=== PATIENT | female | born 1930 | race African-American/Black ===

== ENCOUNTER 2017-01-26 09:56 | Inpatient (IN) ==
--- NOTE | 2017-01-26 10:41 | Emergency Department Note ---
Juanita Mcnair Hilary, am scribing for, and in the presence of, Neto Guzman MD 10:29. Megan Mcnair Charles R, MD, personally performed the services described in this documentation, ascribed by Josiane Grant in my presence, and it is both accurate and complete . Arrival - Arrival Chief Complaint: Weakness Stated Complaint: weakness ED Nursing Triage Note: EMS states that she has had unexplained generalized weakness and lethargic. Patient alert and oriented. Pt BS was 200 this AM and daughter gave her her insulin. EMS reports that she is unable to walk. Mode of Arrival: Stretcher Limitations: No Limitations Source: Patient, RN Notes Reviewed - History of Present Illness HPI Narrative: Pt is an 87 y/o female brought to the ED via EMS with c/o generalized weakness which onset yesterday at 1900. Pt is a poor historian so family states that she started to shake, said she was cold and didn't feel well. She confirms weakness , SOB, abdominal pain, decreased appetite, shaking and feeling bad but denies fever or vomiting. Pt has a PMHx of CAD, HTN, [place], IDDM, Depression and Renal Problems. No other complaints or problems stated in the ED. Onset (ago): day(s) Consistency: constant Severity: mild Severity scale (1-10): 1 Allergies/Adverse Reactions: Allergies Allergy/AdvReac Type Severity Reaction Status Date / Time acetaminophen [From Tylenol] Allergy Intermediate Swelling Verified 06/02/15 06: 30 of Lip/Tongue/Throat Home Medications: Home Medications Medication Instructions Recorded Confirmed Type Albuterol Sulfate [Proair HFA] 108 mcg RESP TX Q4HR PRN 05/15/15 06/02/15 History Allopurinol 100 mg PO BID 05/15/15 06/02/15 History Furosemide Tab [Lasix Tab] 20 mg PO DAILY 05/15/15 06/02/15 History Omeprazole [Prilosec] 20 mg PO DAILY 05/15/15 06/02/15 History Sertraline HCl 25 mg PO DAILY 05/15/15 06/02/15 History Aspirin EC Tab 81 mg PO DAILY tablet 05/18/15 06/02/15 Rx Atorvastatin [Lipitor] 40 mg PO DAILY tablet 05/18/15 06/02/15 Rx Carvedilol [Coreg] 6.25 mg PO BID tablet 05/18/15 06/02/15 Rx Gabapentin Cap/Tab [Neurontin 300 mg PO BID capsule 05/18/15 06/02/15 Rx Cap/Tab] Insulin NPH/Regular 70/30 [HumuLIN 20 unit SUBCUT AC SUPPER injection 05/18/15 06/02/15 Rx 70/30] Nitroglycerin Sl Tab [Nitrostat] 0.4 mg SL Q5M PRN #0 tablet 05/18/15 06/02/15 Rx Prasugrel [Effient] 10 mg PO DAILY tablet 05/18/15 06/02/15 Rx Insulin NPH/Regular 70/30 [HumuLIN 40 unit SUBCUT AC BREAKFAST 06/02/15 History ] Review of System - Review of System 12 point system: reviewed and no additional remarkable complaints except as stated - Review of System Constitutional: Present: weakness, other (shaking). Absent: fever Respiratory: Present: respiratory distress (SOB) Gastrointestinal: Present: abdominal pain. Absent: vomiting Neurological: Present: weakness Medical,Surgical,& Family Hx - Medical History Cardio: History of: CAD, Hypertension, [place] ([place] 05/15/15) Psychological: History of: Depression Neurology: No history of: Seizures HEENT: History of: Eye Problem (wears glasses, cataracts) Endocrine: History of: Diabetes Mellitus (IDDM) Rheumatology: History of;: Gout Respiratory: History of: Asthma, Pneumonia, Respiratory Problems (uses inhaler for wheezing) Renal: History of: Renal Problems (chronic renal insufficiency) Genitourinary: History of: Recurring Urinary Tract Infections Gastrointestinal: History of: Hemorrhoids Musculoskeletal: History of: Amputation (rt. great toe 2014), Back/Neck Problems Other: History of: Anaphylaxis (lips and face swell) - Surgical History Cardiac Surgeries: Sugical HX of: Cardiac Catheterization (05/15/15 and 06/02/15 with stents) Thoracic Surgeries: Patient denies;: Organ Transplant, Lobectomy Neurologic Surgeries: Patient denies: Neurologic Surgery HEENT Surgeries: Surgical HX of: Eye Surgery (cataract surgery) Abdominal Surgeries: Surgical HX of: Appendectomy, Colonoscopy Reproductive Surgeries: Surgical HX of;: Hysterectomy Patient denies;: Genitourinary Surgery - Family History Family History: Reports;: Family Diabetes (3 brothers and 1 sister), Family Heart Disease (brother), Family Hypertension (both parents) Denies;: Family Anesthesia Reaction, Family Cancer, Family Psychiatric Problems, Family Stroke - Social History Smoking Status: Never smoker Frequency of Alcohol Use: None Exam Vital Signs: Vital Signs Temperature 98.7 F 01/26/17 09:58 Pulse Rate 71 01/26/17 09:58 Respiratory Rate 19 01/26/17 09:58 Blood Pressure 137/81 01/26/17 09:58 O2 Sat by Pulse Oximetry 99 01/26/17 09:58 - General General appearance: alert, in no apparent distress, other (shakes right arm) - Head Head exam: Present: atraumatic, normocephalic - Eye Eye exam: Present: normal appearance, PERRL, EOMI - ENT ENT exam: Present: mucous membranes moist, TM's normal bilaterally. Absent: mucous membranes dry - Neck Neck exam: Present: full ROM, trachea midline. Absent: tenderness - Chest Chest inspection: Present: symmetric chest wall rise. Absent: tenderness - Respiratory Respiratory exam: Present: normal lung sounds bilaterally. Absent: respiratory distress - Cardiovascular Cardiovascular exam: Present: regular rate, normal rhythm, normal heart sounds. Absent: murmur, rubs, gallop - Abdominal Exam Abdominal exam: Present: soft (bloated), tenderness (RUQ), normal bowel sounds. Absent: distention - Extremities Exam Extremities exam: Present: full ROM. Absent: tenderness - Back Exam Back exam: Present: full ROM. Absent: tenderness - Neurological Exam Neurological exam: Present: alert, oriented X3, CN II-XII intact. Absent: motor sensory deficit - Psychiatric Psychiatric exam: Present: normal affect, normal mood - Skin Skin exam: Present: warm, dry, intact, normal color, rash Course - Consultations Consultation #1: Hospitalist will admit patient Time: 10:39 Results - Labs Lab Results: I have reviewed the patients labs Labs: All results reviewed from previous facility Disposition Clinical Impression: Generalized weakness, Leukocytosis, Nausea & vomiting, Rigors, Acute dyspnea, Debility, unspecified, Advanced age, Abdominal pain, Renal insufficiency, Congestive heart failure, Lower extremity edema, Elevated LFTs Case discussed with: patient, patient's family Disposition: Still a Patient Condition: Stable Time of Disposition: 10:41
--- NOTE | 2017-01-26 11:26 | Ultrasound Report ---
Exam: US gallbladder Date:01/26/2017 10:32 AM Comparison: None Indication: Elevated liver function test Findings: IMPORTANT MEASUREMENTS Liver Length: Normal size shape and configuration 11.7 cm Gallbladder Wall Thickness: Small stones present. Positive sonographic Bravo sign present. Multiple small stones present. Gallbladder wall 3 mm CBD: No obvious stones 3 mm Pancreas: Normal size shape and configuration Right kidney: No hydronephrosis perinephric fluid collections or focal massLength: 9.4 cm Width: 5 cm AP: 4.1 cm 2.0 x 1.8 x 1.9 cm cyst lower pole right kidney Impression: 1. Cholelithiasis 2. Cyst measuring 2 x 1.8 x 1.9 cm in the lower pole the right kidney The Ultrasound images were captured and stored. PROCEDURE INTERPRETED AT [facility] DEPARTMENT OF RADIOLOGY Final Report Signed by: Dr. Jose C Vieira
--- NOTE | 2017-01-26 11:40 | Hospitalist History & Physical ---
Assessment and Plan (1) Abdominal pain Status: Acute Assessment and plan: The patient experienced right lower quadrant abdominal pain upon gentle palpation. Gallbladder ultrasound revealed moderate amount of gallstones. We will keep the patient n.p.o., start empiric antibiotic coverage, pain management , protein pump inhibitors, and consult surgery to evaluate. Current Visit: Yes (2) Congestive heart failure Status: Acute Assessment and plan: ProBNP was reported at 1533. The patient reported shortness of breath and dyspnea upon minimal exertion. The patient currently takes 240 mg of furosemide daily 80 mg at the hour of sleep and 160 mg every morning. We will obtain echocardiogram to evaluate heart function. In addition, the patient underwent cardiac catheterization with stent placement 5. The patient is currently taking Effient for coagulation purposes. Due to the severity of the patient's cardiovascular disease, we will consult cardiology to evaluate and assist during the clinical encounter. We will obtain chest x-ray, CMP, and BNP in a.m. Current Visit: Yes (3) Chronic renal insufficiency Status: Chronic Assessment and plan: Upon review of the external facility record, the patient's BUN and creatinine was noted at 25/2.20. Upon further investigation, during the last clinical encounter in which the patient was hospitalized here at [facility] on May 18, 2015, the patient's BUN and creatinine was noted at 20/1.73. This is a moderate increase since the previous clinical encounter. We will monitor the patient's renal function closely. We will recheck labs in a.m. Current Visit: No (4) Type 2 diabetes mellitus Status: Chronic Assessment and plan: We will obtain hemoglobin A1c and start Accu-Cheks with sliding scale coverage. Current Visit: No History of Present Illness History of present illness: This is a very pleasant 87-year-old female that presented to the ED at [facility] this morning as a transfer from the [facility] in [facility] for the further evaluation of weakness. The patient has a very complex medical history significant for coronary artery disease, hypertension, myocardial infarction, depression, gouty arthritis , chronic urinary tract infections, chronic renal insufficiency, hemorrhoids, asthma, pneumonia, and chronic neck and back pain. The patient has a surgical history significant for cardiac catheterization with stent placement 5, appendectomy, hysterectomy, and colonoscopy. The patient reported the onset of symptoms on last night. The family was present at bedside reported that the patient is a poor historian at times and has agreed to serve as historian. The family reported that they noticed that the patient was "shaking, cold, and did not feel well". In addition, they reported a gradual onset of weakness, shortness of breath, and decreased appetite. They reported that the patient started to experience abdominal pain with vomiting 1 on last night. They reported that the patient's symptoms became more severe as the night progressed prompting them to present to the ED at [facility] for further evaluation. The patient was assessed at the time of ED presentation at [facility]. Upon review of the patient's medical record, labs were obtained prior to transfer which were significant for white blood cell count 17.2, hemoglobin 10.2, hematocrit 31.8, sodium 136, creatinine 2.20, BUN 25, glucose 231, alkaline phosphatase 241, ALT 145, AST 192, creatinine kinase 450, CK-MB 7.0, PT 15.1, INR 1.2, amylase 30, lipase 2, proBNP 1533, and lactic acid 1.6. Urinalysis was essentially unremarkable. CT head without IV contrast significant for chronic changes with no definite evidence of acute intracranial abnormality and the presence of mild chronic sinus disease was noted. Abdominal x-ray was significant for cardiomegaly, osteoarthritis however, no acute abnormality was noted. The patient was assessed at the time of ED presentation. Ultrasound of the gallbladder was performed which was significant for the presence of multiple gallstones. After brief discussion with both Dr. Guzman and Dr. Hardin, the patient will be admitted to the hospitalist service for continuation of care. Both surgical and cardiology will be requested to evaluate and assist during the clinical encounter. Home medications have been reviewed and reconciled. CODE STATUS discussed; patient is FULL CODE Home Medications Medication Instructions Recorded Confirmed Type Albuterol Sulfate [Proair HFA] 108 mcg RESP TX Q4HR PRN 05/15/15 01/26/17 History Allopurinol 100 mg PO QAM 05/15/15 01/26/17 History Omeprazole [Prilosec] 20 mg PO BEDTIME 05/15/15 01/26/17 History Nitroglycerin Sl Tab [Nitrostat] 0.4 mg SL Q5M PRN #0 tablet 05/18/15 01/26/17 Rx Insulin NPH/Regular 70/30 [HumuLIN 42 unit SUBCUT AC BREAKFAST 06/02/15 History 70/30] Aspirin EC Tab 81 mg PO QAM 01/26/17 01/26/17 History Atorvastatin [Lipitor] 40 mg PO BEDTIME 01/26/17 01/26/17 History Carvedilol [Carvedilol] 12.5 mg PO BID 01/26/17 01/26/17 History Furosemide [Furosemide] 80 mg PO QPM 01/26/17 01/26/17 History Furosemide [Furosemide] 160 mg PO QAM 01/26/17 01/26/17 History Gabapentin [Gabapentin] 400 mg PO TID 01/26/17 01/26/17 History Insulin NPH/Regular 70/30 [HumuLIN 22 unit SUBCUT AC SUPPER 01/26/17 01/26/17 History 70/30] Magnesium Chloride [Slow Mag] 128 mg PO BID 01/26/17 01/26/17 History Medroxyprogesterone Acetate 5 mg PO QAM 01/26/17 01/26/17 History Potassium Chloride 20 meq PO BID 01/26/17 01/26/17 History Prasugrel [Effient] 10 mg PO QAM 01/26/17 01/26/17 History Sertraline [Zoloft] 50 mg PO BEDTIME 01/26/17 01/26/17 History Allergies Allergy/AdvReac Type Severity Reaction Status Date / Time acetaminophen [From Tylenol] Allergy Intermediate Swelling Verified 06/02/15 06: 30 of Lip/Tongue/Throat Medical,Surgical,& Family Hx - Medical History Cardio: History of: CAD, Hypertension, [place] ([place] 05/15/15) Psychological: History of: Depression Neurology: No history of: Seizures HEENT: History of: Eye Problem (wears glasses, cataracts) Endocrine: History of: Diabetes Mellitus (IDDM) Rheumatology: History of;: Gout Respiratory: History of: Asthma, Pneumonia, Respiratory Problems (uses inhaler for wheezing) Renal: History of: Renal Problems (chronic renal insufficiency) Genitourinary: History of: Recurring Urinary Tract Infections Gastrointestinal: History of: Hemorrhoids Musculoskeletal: History of: Amputation (rt. great toe 2014), Back/Neck Problems Other: History of: Anaphylaxis (lips and face swell) - Surgical History Cardiac Surgeries: Sugical HX of: Cardiac Catheterization (05/15/15 and 06/02/15 with stents) Thoracic Surgeries: Patient denies;: Organ Transplant, Lobectomy Neurologic Surgeries: Patient denies: Neurologic Surgery HEENT Surgeries: Surgical HX of: Eye Surgery (cataract surgery) Abdominal Surgeries: Surgical HX of: Appendectomy, Colonoscopy Reproductive Surgeries: Surgical HX of;: Hysterectomy Patient denies;: Genitourinary Surgery - Family History Family History: Reports;: Family Diabetes (3 brothers and 1 sister), Family Heart Disease (brother), Family Hypertension (both parents) Denies;: Family Anesthesia Reaction, Family Cancer, Family Psychiatric Problems, Family Stroke - Social History Smoking Status: Never smoker Have you smoked in the last 12 months: No Frequency of Alcohol Use: None Type of Drug Use: None Marital Status: Lives With:: Children Functional capacity: independent ambulation 12 point system: reviewed and no additional remarkable complaints except as stated Exam - Constitutional Vitals: Period Temp Pulse Resp BP Sys/Escobar Pulse Ox Last 24 Hr 98.7 F-98.7 F 71-71 19-19 137-137/81-81 99 General appearance: normal weight, mild distress - Head Head exam: Present: normal inspection, normocephalic, atraumatic - Eye Eye exam: Present: EOMI. Absent: conjunctival injection Pupils: Present: LYSSA, normal accommodation - ENT ENT exam: Present: normal exam, normal external ear exam, normal oropharynx - Neck Neck exam: Present: normal inspection. Absent: lymphadenopathy, meningismus, tenderness, thyromegaly - Respiratory Respiratory exam: Present: clear to auscultation bilaterally. Absent: rales, rhonchi, stridor, wheezes - Cardiovascular Cardiovascular exam: Present: regular rate and rhythm. Absent: carotid bruit, diastolic murmur, gallop, JVD, rubs, systolic murmur - GI/Abdominal GI/Abdominal exam: Present: normal bowel sounds, tenderness (Upon gentle palpation to the right lower quadrant), soft - Extremities Exam Extremities exam: Present: normal inspection, normal capillary refill, full ROM. Absent: edema - Back Exam Back exam: Present: normal inspection - Neurological Exam Neurological exam: Present: alert, oriented X3, CN II-XII intact - Psychiatric Psychiatric exam: Present: normal affect, normal mood - Skin Skin exam: Present: normal color, warm, dry Results - Labs Lab Results: I have reviewed the past 24 hour labs
[2017-01-26] MEDS ORDERED: ONDANSETRON 4 MG/2 ML VIAL IV PRN (11:52)
[2017-01-26] MEDS ORDERED: MORPHINE 2 MG/1 ML SYRINGE IV PRN (11:52)
[2017-01-26] MEDS ORDERED: GLUCAGON 1 MG VIAL IM PRN (11:55)
[2017-01-26] MEDS ORDERED: DEXTROSE 50% 25 GM/50 ML VIAL IV PRN (11:55)
[2017-01-26] MEDS ORDERED: ALBUTEROL 2.5 MG/3 ML NEB RESP TX PRN (12:10)
[2017-01-26] MEDS ORDERED: SODIUM CHLORIDE 0.9% 1,000 ML IV SCH (14:00)
--- NOTE | 2017-01-26 14:41 | General Surgery Consult Note ---
Assessment and Plan - Time spent with patient Time spent with patient: Greater than 30 minutes History of Present Illness Chief complaint: Gallbladder History of present illness: Ms. Wise is a 87 year old female Who apparently over the last 4 days is had decreased mental status and increased weakness and vague abdominal complaints. She has not specifically complained of right upper quadrant pain but has had a imaging showing a thickened distended gallbladder. She is unable to give much reliable history. Home Medications Medication Instructions Recorded Confirmed Type Allopurinol 100 mg PO QAM 05/15/15 01/26/17 History Omeprazole [Prilosec] 20 mg PO BEDTIME 05/15/15 01/26/17 History Insulin NPH/Regular 70/30 [HumuLIN 42 unit SUBCUT AC BREAKFAST 06/02/15 History 70/30] Aspirin EC Tab 81 mg PO QAM 01/26/17 01/26/17 History Atorvastatin [Lipitor] 40 mg PO BEDTIME 01/26/17 01/26/17 History Carvedilol [Carvedilol] 12.5 mg PO BID 01/26/17 01/26/17 History Furosemide [Furosemide] 80 mg PO QPM 01/26/17 01/26/17 History Furosemide [Furosemide] 160 mg PO QAM 01/26/17 01/26/17 History Gabapentin [Gabapentin] 400 mg PO TID 01/26/17 01/26/17 History Insulin NPH/Regular 70/30 [HumuLIN 22 unit SUBCUT AC SUPPER 01/26/17 01/26/17 History 70/30] Magnesium Chloride [Slow Mag] 128 mg PO BID 01/26/17 01/26/17 History Medroxyprogesterone Acetate 5 mg PO QAM 01/26/17 01/26/17 History Potassium Chloride 20 meq PO BID 01/26/17 01/26/17 History Prasugrel [Effient] 10 mg PO QAM 01/26/17 01/26/17 History Sertraline [Zoloft] 50 mg PO BEDTIME 01/26/17 01/26/17 History Allergies Allergy/AdvReac Type Severity Reaction Status Date / Time acetaminophen [From Tylenol] Allergy Intermediate Swelling Verified 06/02/15 06: 30 of Lip/Tongue/Throat Medical,Surgical,& Family Hx - Medical History Cardio: History of: CAD, Hypertension, [place] ([place] 05/15/15) Psychological: History of: Depression Neurology: No history of: Seizures HEENT: History of: Eye Problem (wears glasses, cataracts) Endocrine: History of: Diabetes Mellitus (IDDM) Rheumatology: History of;: Gout Respiratory: History of: Asthma, Pneumonia, Respiratory Problems (uses inhaler for wheezing) Renal: History of: Renal Problems (chronic renal insufficiency) Genitourinary: History of: Recurring Urinary Tract Infections Gastrointestinal: History of: Hemorrhoids Musculoskeletal: History of: Amputation (rt. great toe 2014), Back/Neck Problems Other: History of: Anaphylaxis (lips and face swell) - Surgical History Cardiac Surgeries: Sugical HX of: Cardiac Catheterization (05/15/15 and 06/02/15 with stents) Thoracic Surgeries: Patient denies;: Organ Transplant, Lobectomy Neurologic Surgeries: Patient denies: Neurologic Surgery HEENT Surgeries: Surgical HX of: Eye Surgery (cataract surgery) Abdominal Surgeries: Surgical HX of: Appendectomy, Colonoscopy Reproductive Surgeries: Surgical HX of;: Hysterectomy Patient denies;: Genitourinary Surgery - Family History Family History: Reports;: Family Diabetes (3 brothers and 1 sister), Family Heart Disease (brother), Family Hypertension (both parents) Denies;: Family Anesthesia Reaction, Family Cancer, Family Psychiatric Problems, Family Stroke - Social History Smoking Status: Never smoker Frequency of Alcohol Use: None Type of Drug Use: None - Constitutional Constitutional: Absent: chills, fever(s), weight loss - EENT Nose, mouth and throat: Absent: dysphagia - Cardiovascular Cardiovascular: Absent: chest pain at rest, chest pain with activity, dyspnea, dyspnea on exertion, syncope - Respiratory Respiratory: Absent: dyspnea, hemoptysis, dyspnea on exertion - Gastrointestinal Gastrointestinal: Present: abdominal pain, nausea. Absent: hematemesis, hematochezia, vomiting, jaundice - Genitourinary Genitourinary: Absent: hematuria - Musculoskeletal Musculoskeletal: Absent: back pain - Neurological Neurological: Absent: focal weakness, syncope - Endocrine Endocrine: Present: polyuria Hematologic/Lymphatic: Absent: easy bleeding, easy bruising Exam - Constitutional Vitals: Period Temp Pulse Resp BP Sys/Escobar Pulse Ox Last 24 Hr 98.7 F-98.7 F 62-71 18-19 113-147/52-81 96-99 General appearance: no acute distress - Head Head exam: Present: normocephalic - Eye Eye exam: Absent: scleral icterus - ENT Mouth exam: Present: normal voice - Neck Neck exam: Present: trachea midline. Absent: tenderness - Respiratory Respiratory exam: Present: clear to auscultation bilaterally. Absent: accessory muscle use - Cardiovascular Cardiovascular exam: Present: RRR - GI/Abdominal GI/Abdominal exam: Present: soft. Absent: distended, mass, Bravo's sign, tenderness, rebound - Neurological Exam Neurological exam: Present: altered. Absent: oriented X3, motor sensory deficit Speech: Present: normal - Skin Skin exam: Present: normal color Quality Measures - VTE Contraindication to Pharmacological VTE Prophylaxis: Already on Theraputic Agent , No Prophylaxis Needed Results - Diagnostic Findings Procedure: Ultrasound: report reviewed by me
[2017-01-26] MEDS: CIPROFLOXACIN INJ 400 MG in PREMIX 1 EACH IV SCH (14:45)
--- NOTE | 2017-01-26 14:46 | Event Note ---
This is an assessment and plan from a H&P as the system will not allow me to put in an assessment and plan as someone else is using the record. This appears to represent acute cholecystitis. Her symptoms are very atypical and she is a very poor historian. She is weak and debilitated with multiple medical comorbidities and I discussed surgery and the risks involved with surgery with her family and they would like to try an alternative to surgery if possible. I discussed percutaneous drainage which I think is a reasonable alternative to surgery in this patient who will be very high risk and a poor operative candidate. If she fails to respond to percutaneous drainage and antibiotics then we can revisit the issue of surgery. I will follow along with you. I will go ahead and consult interventional radiology.
[2017-01-26] MEDS: INSULIN REGULAR 100 UNIT/ML SUBCUT SCH ×2 (16:43→20:43)
[2017-01-26] MEDS: metroNIDAZOLE INJ 500 MG in PREMIX 1 EACH IV SCH (17:15)
[2017-01-26] MEDS: SODIUM CHLORIDE 0.9% 1,000 ML IV SCH (18:39)
--- NOTE | 2017-01-26 20:20 | Cardiology Consult Note ---
I, Zenia Hough, RN, am scribing for, and in the presence of, Arvin Cedillo MD 20:20. Assessment and Plan - Time spent with patient Time spent with patient: Greater than 30 minutes (Due to assessment, planning, documentation, medication review) (1) CAD (coronary artery disease) Status: Chronic Assessment and plan: The patient has gallstones, may be causing some symptoms The patient has known coronary stents, but stress test in 6 showed no ischemia, 16 months ago. No no angina suggestive at this time From my standpoint, may proceed with cholecystectomy when you deem best. I would estimate her cardiac risk of the noncardiac surgery would be 2-4% chance of [place] arrhythmia or heart failure the main risk being related to her age- -. She had an echo done in 7 showed ejection fraction of 60%. We will not repeat at this time. I will follow along with you. Thank you for allowing me to participate in this patient's care Current Visit: Yes Qualifiers: Coronary Disease-Associated Artery/Lesion type: [place] artery [place] vs. transplanted heart: [place] heart Associated angina: without angina Qualified Code(s): I25.10 - Atherosclerotic heart disease of [place] coronary artery without angina pectoris (2) Advanced age Status: Chronic Current Visit: Yes (3) Generalized weakness Status: Acute Current Visit: Yes (4) Type 2 diabetes mellitus Status: Chronic Current Visit: Yes History of Present Illness - Data of Consult Patient: known to practice within the last 3 years Consult date: 01/26/17 Requesting Physician: Alessia Sweeney - Consult Narrative Reason for consult: CHF History of present illness: Clay Burner: Dr. Philip Ms. Wise is a 87 year old female with a history of CAD, diabetes, GERD, CHF, and chronic kidney disease. Ms. Wise is sleeping and the daughter assisted with her history. On May 15, 2015 she had mid RCA stented and on June 02, 2015 she had overlapping stents placed and her LAD. Echocardiogram done in Dr. Philip's office June 25, 2016 with ejection fraction of 60%, mild mitral regurgitation, mild to moderate tricuspid regurgitation, and trace pulmonic regurgitation. Stress test in Dr. Philip's office in August 2015 was normal. Other surgical history includes appendectomy, amputation of great toe, hemorrhoidectomy, D&C, and bilateral cataract surgery. Family history is positive for mother with hypertension and diabetes, daughter with hypertension and diabetes, brother with end-stage renal disease and [place], and sister with FL and renal disease. Ms. Wise's daughter states she was taken to [facility] yesterday because of complaints of weakness, dyspnea on exertion, and a temp of 100. She says she was also complaining of generalized body aches and one episode of abdominal pain with vomiting. She is not sure how long the symptoms have been going on, she thinks they probably have been going on for a week or more but states her mother just started complaining of them yesterday. She was transferred this morning to [facility] for further evaluation. Gallbladder ultrasound indicated multiple small stones present. Pertinent lab from [facility]: WBC 17.2, sodium 136, creatinine 2.02, CK 450, CK-MB 7, troponin was negative, proBNP 1533.1. EKG showed normal sinus rhythm with heart rate of 77. Currently the patient is resting in bed sleeping. She will wake up to verbal stimuli, but she dozes right back off. The daughter states she is oriented 3. CC: Cehyenne Hardin MD - Home Medications and Allergies Home Medications: Home Medications Medication Instructions Recorded Confirmed Type Allopurinol 100 mg PO QAM 05/15/15 01/26/17 History Omeprazole [Prilosec] 20 mg PO BEDTIME 05/15/15 01/26/17 History Insulin NPH/Regular 70/30 [HumuLIN 42 unit SUBCUT AC BREAKFAST 06/02/15 History 70/30] Aspirin EC Tab 81 mg PO QAM 01/26/17 01/26/17 History Atorvastatin [Lipitor] 40 mg PO BEDTIME 01/26/17 01/26/17 History Carvedilol [Carvedilol] 12.5 mg PO BID 01/26/17 01/26/17 History Furosemide [Furosemide] 80 mg PO QPM 01/26/17 01/26/17 History Furosemide [Furosemide] 160 mg PO QAM 01/26/17 01/26/17 History Gabapentin [Gabapentin] 400 mg PO TID 01/26/17 01/26/17 History Insulin NPH/Regular 70/30 [HumuLIN 22 unit SUBCUT AC SUPPER 01/26/17 01/26/17 History 70/30] Magnesium Chloride [Slow Mag] 128 mg PO BID 01/26/17 01/26/17 History Medroxyprogesterone Acetate 5 mg PO QAM 01/26/17 01/26/17 History Potassium Chloride 20 meq PO BID 01/26/17 01/26/17 History Prasugrel [Effient] 10 mg PO QAM 01/26/17 01/26/17 History Sertraline [Zoloft] 50 mg PO BEDTIME 01/26/17 01/26/17 History Allergies/Adverse Reactions: Allergies Allergy/AdvReac Type Severity Reaction Status Date / Time acetaminophen [From Tylenol] Allergy Intermediate Swelling Verified 06/02/15 06: 30 of Lip/Tongue/Throat ROS unobtainable: other (Patient is sleeping and will not wake up to answer questions) Medical,Surgical,& Family Hx - Medical History Cardio: History of: CAD, Hypertension, FL (FL 05/15/15) Psychological: History of: Depression HEENT: History of: Eye Problem (wears glasses, cataracts) Endocrine: History of: Diabetes Mellitus (IDDM) Rheumatology: History of;: Gout Respiratory: History of: Asthma, Pneumonia, Respiratory Problems (uses inhaler for wheezing) Renal: History of: Renal Problems (chronic renal insufficiency) Genitourinary: History of: Recurring Urinary Tract Infections Gastrointestinal: History of: Hemorrhoids Musculoskeletal: History of: Amputation (rt. great toe 2015), Back/Neck Problems Other: History of: Anaphylaxis (lips and face swell) - Surgical History Cardiac Surgeries: Sugical HX of: Cardiac Catheterization (05/15/15 and 06/02/15 with stents) HEENT Surgeries: Surgical HX of: Eye Surgery (cataract surgery) Abdominal Surgeries: Surgical HX of: Appendectomy, Colonoscopy Reproductive Surgeries: Surgical HX of;: Hysterectomy - Family History Family History: Reports;: Family Diabetes (3 brothers and 1 sister), Family Heart Disease (brother), Family Hypertension (both parents) - Social History Smoking Status: Never smoker (Chews tobacco) Frequency of Alcohol Use: None Type of Drug Use: None Marital Status: Lives With:: Spouse Functional capacity: uses cane/walker Physical Examination Vital Signs Temp Pulse Resp BP Pulse Ox 98.7 F 71 19 137/81 99 01/26/17 09:58 01/26/17 09:58 01/26/17 09:58 01/26/17 09:58 01/26/17 09:58 General: Present: Appears Well, No Apparent Distress HEENT: Present: PERRL, Mucus Membranes Moist Neck: Present: Supple Neck, Midline Trachea Cardiac: Present: Reg Rate and Rhythm. Absent: Tachycardia, Bradycardia Lungs: Present: Normal Breath Sounds, No Wheeze, Rales, Rhonchi Neuro: Absent: Resting Tremor, Essential Tremor Abdomen: Present: Soft, Active Bowel Sounds. Absent: Distended Skin: Absent: Rash, Suspicious Lesions Extremities: Present: Normal Upper Extr. Pulses, Edema (Brawny edema to bilateral lower extremities). Absent: Normal Lower Extr. Pulses (Weak pulses) Result/EKG - Labs Lab Results: I have reviewed the past 24 hour labs Labs: Laboratory Results - last 24 hr 01/26/17 01/26/17 15:24 19:43 POC Glucose 99 91 - EKG EKG results: interpreted by me EKG shows: sinus rhythm Quality Measures - VTE Contraindication to Pharmacological VTE Prophylaxis: Already on Theraputic Agent , No Prophylaxis Needed I, Arvin Cedillo MD, personally performed the services described in this documentation, ascribed by Zenia Hough RN in my presence, and it is both accurate and complete .
[2017-01-26 20:58] LABS: Apearance,Urine CLEAR (Clear); Bilirubin,Urine Negative (Negative); Blood, Urine Negative (Negative); Glucose,Urine (UA) Negative (Negative); Hyaline Casts,Urine 8 /LPF (0-3); Ketones,Urine Negative (Negative); Nitrite,Urine Negative (Negative); Protein,Urine Negative; Urine Color Yellow (Yellow); Urine Specific Gravity 1.008 (1.001-1.035); Urine Urobilinogen < 2.0 EU/DL (0.2-1.0); WBC,Urine 1 /HPF (0-6)
[2017-01-26] MEDS: FUROSEMIDE 80 MG TABLET PO SCH (21:47)
[2017-01-26] MEDS: CARVEDILOL 12.5 MG TABLET PO SCH (23:27)
[2017-01-26] MEDS: DEXTROSE 5% NACL 0.22% 1,000 ML IV SCH (23:39)
[2017-01-27] MEDS: metroNIDAZOLE INJ 500 MG in PREMIX 1 EACH IV SCH ×3 (00:01→16:14)
[2017-01-27] MEDS: CIPROFLOXACIN INJ 400 MG in PREMIX 1 EACH IV SCH ×2 (00:53→11:31)
[2017-01-27 08:08] LABS: Basophils % 0.2 % (0.0-0.8); Eosinophils # 0.6 10*3/uL (0.0-0.87); Eosinophils % 6.5 % (0.00-10.9); Hematocrit 30.4 VOL% (35.7-47.0); Hemoglobin 10.1 GM/DL (12.0-16.0); Immature Granulocytes % 0.3 %; Immature Granulocytes Absolute 0.03 #; Lymphocytes # 0.9 10*3/uL (1.4-4.0); Lymphocytes % 10.7 % (21.3-54.2); Mean Corpuscular HGB Conc 33.2 GM/DL (32-36); Mean Corpuscular Hemoglobin 27 PG (27-34); Mean Corpuscular Volume 81.9 FL (87-102); Mean Platelet Volume 11.4 FL (9.6-12.0); Monocytes # 0.8 10*3/uL (0.11-0.8); Monocytes % 8.8 % (1.7-12.7); Neutrophils # 6.5 10*3/uL (1.4-7.4); Neutrophils % 73.5 % (38.7-73.9); Platelet Count 182 T/CUMM (130-400); Red Blood Count 3.71 MC/CUMM (3.8-5.5); Red Cell Distribution Width 16.5 % (9.3-17.3); White Blood Count 8.8 T/CUMM (4-12)
--- NOTE | 2017-01-27 08:19 | XRay Report ---
Portable chest January 27, 2017 0616 hours Indication: Shortness of breath, cough Comparison: February 13, 2015 Findings: Cardiomediastinal contours are stable with underlying cardiomegaly and atheromatous changes are. Lungs are essentially clear bilaterally. No acute osseous abnormalities. Visualized upper abdomen demonstrates no acute pathology. Impression: No acute cardiopulmonary findings PROCEDURE INTERPRETED AT [facility] DEPARTMENT OF RADIOLOGY Final Report Signed by: Trenton Vazquez
[2017-01-27 08:24] LABS: INR 1.1
[2017-01-27] MEDS: INSULIN REGULAR 100 UNIT/ML SUBCUT SCH ×4 (08:29→21:21)
[2017-01-27 08:43] LABS: Albumin 2.8 G/DL (3.4-5.0); Bilirubin,Total 0.8 MG/DL (0.2-1.0); Calcium 8.2 MG/DL (8.5-10.1)
[2017-01-27 08:44] LABS: Magnesium 2.1 MG/DL (1.8-2.4); Osmolality,Calculated 284.7 MOS/KG (273-304); Potassium 4.2 MMOL/L (3.5-5.1); Risk Ratio 3.57; VLDL CHOLESTEROL 24.8 MG/DL
[2017-01-27] MEDS ORDERED: PRASUGREL 10 MG TABLET PO SCH (09:00)
--- NOTE | 2017-01-27 10:04 | Hospitalist Progress Note ---
Assessment and Plan (1) Abdominal pain Status: Acute Assessment and plan: The patient experienced right lower quadrant abdominal pain upon gentle palpation. Gallbladder ultrasound revealed moderate amount of gallstones. We will keep the patient n.p.o., start empiric antibiotic coverage, pain management , protein pump inhibitors, and consult surgery to evaluate. 01/27-patient seen and evaluated by surgery on yesterday. We appreciate the input and agree with the recommendations for avoidance of surgical intervention. The patient has been scheduled for percutaneous drain placement per IR today. We will continue n.p.o. status, empiric antibiotic coverage, pain management, and PPIs as previously ordered. Current Visit: Yes (2) Congestive heart failure Status: Acute Assessment and plan: ProBNP was reported at 1533. The patient reported shortness of breath and dyspnea upon minimal exertion. The patient currently takes 240 mg of furosemide daily 80 mg at the hour of sleep and 160 mg every morning. We will obtain echocardiogram to evaluate heart function. In addition, the patient underwent cardiac catheterization with stent placement 5. The patient is currently taking Effient for coagulation purposes. Due to the severity of the patient's cardiovascular disease, we will consult cardiology to evaluate and assist during the clinical encounter. We will obtain chest x-ray, CMP, and BNP in a.m 01/27-The patient was evaluated by cardiology on yesterday. We appreciate the input. We will continue current plan of care per cardiology recommendation. Current Visit: Yes (3) Chronic renal insufficiency Status: Chronic Assessment and plan: Upon review of the external facility record, the patient's BUN and creatinine was noted at 25/2.20. Upon further investigation, during the last clinical encounter in which the patient was hospitalized here at [facility] on May 18, 2015, the patient's BUN and creatinine was noted at 20/1.73. This is a moderate increase since the previous clinical encounter. We will monitor the patient's renal function closely. We will recheck labs in a.m. 01/27-BUN and creatinine noted at 25/2.10. A mild decrease from 25/2.20 on yesterday. We will continue gentle hydration and recheck labs in a.m. Current Visit: No (4) Type 2 diabetes mellitus Status: Chronic Assessment and plan: We will obtain hemoglobin A1c and start Accu-Cheks with sliding scale coverage. 01/27-hemoglobin A1c noted at 9.5. This is a clear indication of poor glycemic control. We will continue Accu-Cheks with sliding scale coverage as previously ordered. We will review current diabetic regimen and adjust accordingly. The patient may benefit from a long-acting insulin regimen at bedtime once feedings are resumed. Current Visit: Yes Hospitalist: Subjective Interval history: Patient seen and examined; chart review. No significant overnight events reported per staff. Awaiting percutaneous drainage placement this morning per IR. Exam - Constitutional Vitals: Period Temp Pulse Resp BP Sys/Escobar Pulse Ox Last 24 Hr 97.7 F-98.7 F 62-76 16-20 106-147/52-80 95-99 General appearance: normal weight, no acute distress - Head Head exam: Present: normal inspection, normocephalic, atraumatic - Eye Eye exam: Present: EOMI. Absent: conjunctival injection Pupils: Present: LYSSA, normal accommodation - ENT ENT exam: Present: normal exam, normal external ear exam, normal oropharynx - Neck Neck exam: Present: normal inspection. Absent: lymphadenopathy, meningismus, tenderness, thyromegaly - Respiratory Respiratory exam: Present: clear to auscultation bilaterally. Absent: rales, rhonchi, stridor, wheezes - Cardiovascular Cardiovascular exam: Present: regular rate and rhythm. Absent: carotid bruit, diastolic murmur, gallop, JVD, rubs, systolic murmur - GI/Abdominal GI/Abdominal exam: Present: normal bowel sounds, tenderness (Diffuse right lower quadrant pain upon gentle palpation) - Extremities Exam Extremities exam: Present: normal inspection, normal capillary refill, full ROM. Absent: edema - Back Exam Back exam: Present: normal inspection - Neurological Exam Neurological exam: Present: oriented X3, CN II-XII intact - Psychiatric Psychiatric exam: Present: normal mood - Skin Skin exam: Present: normal color, warm, dry Results - Labs CBC & BMP: 01/27/17 07:57 01/27/17 07:57 Lab Results: I have reviewed the past 24 hour labs Quality Measures - VTE Contraindication to Pharmacological VTE Prophylaxis: Already on Theraputic Agent , No Prophylaxis Needed
[2017-01-27] MEDS: ASPIRIN EC 81 MG TABLET PO SCH (11:17)
[2017-01-27] MEDS: CARVEDILOL 12.5 MG TABLET PO SCH ×2 (11:17→21:20)
[2017-01-27] MEDS: ALLOPURINOL 100 MG TABLET PO SCH (11:18)
[2017-01-27] MEDS: FUROSEMIDE 80 MG TABLET PO SCH ×2 (11:18→21:21)
[2017-01-27] MEDS: DEXTROSE 5% NACL 0.22% 1,000 ML IV SCH ×2 (11:30→23:00)
--- NOTE | 2017-01-27 13:28 | General Surgery Progress Note ---
Assessment and Plan - Time spent with patient Time spent with patient: Less than 30 minutes (1) Abdominal pain Status: Acute Assessment and plan: She looks and feels much better. She denies abdominal pain currently. She is a much more awake and alert. She seems to be responding to antibiotics. I discussed her case with interventional radiology. They are concerned about the Effient. They are delaying this because of the recent anticoagulation. Either way she appears to be improving. Current Visit: Yes Subjective Patient reports: Present: feels better, pain is less. Absent: nausea, vomiting , shortness of breath Exam - Constitutional Vitals: Period Temp Pulse Resp BP Sys/Escobar Pulse Ox Last 24 Hr 97.5 F-98.7 F 65-76 16-20 106-147/55-71 95-99 General appearance: no acute distress - Eye Eye exam: Absent: scleral icterus - Respiratory Respiratory exam: Absent: accessory muscle use - GI/Abdominal GI/Abdominal exam: Present: soft. Absent: distended, mass, Bravo's sign, tenderness, rebound Results - Labs CBC & BMP: 01/27/17 07:57 01/27/17 07:57 Lab Results: I have reviewed the past 24 hour labs Quality Measures - VTE Contraindication to Pharmacological VTE Prophylaxis: Already on Theraputic Agent , No Prophylaxis Needed
[2017-01-27] MEDS: SODIUM CHLORIDE 0.9% 1,000 ML IV SCH (15:39)
[2017-01-28] MEDS: CIPROFLOXACIN INJ 400 MG in PREMIX 1 EACH IV SCH ×2 (00:10→12:49)
[2017-01-28] MEDS: metroNIDAZOLE INJ 500 MG in PREMIX 1 EACH IV SCH ×4 (02:35→16:45)
--- NOTE | 2017-01-28 05:19 | Cardiology Progress Note ---
I, Zenia Hough, RN, am scribing for, and in the presence of, Arvin Cedillo MD 05:18. Assessment and Plan (1) CAD (coronary artery disease) Status: Chronic Assessment and plan: Initial assessment and plan January 26, 2017: The patient has gallstones, may be causing some symptoms The patient has known coronary stents, but stress test in showed no ischemia, 16 months ago. No no angina suggestive at this time From my standpoint, may proceed with cholecystectomy when you deem best. I would estimate her cardiac risk of the noncardiac surgery would be 2-4% chance of [place] arrhythmia or heart failure the main risk being related to her age- -. She had an echo done in showed ejection fraction of 60%. We will not repeat at this time. I will follow along with you Assessment and plan January 27, 2017: No chest pain or shortness breath The patient is being evaluated for a cholecystotomy Holding the Effient I will continue to watch for any signs or symptoms of ischemia. So far, none are seen. Current Visit: Yes Qualifiers: Coronary Disease-Associated Artery/Lesion type: [place] artery [place] vs. transplanted heart: [place] heart Associated angina: without angina Qualified Code(s): I25.10 - Atherosclerotic heart disease of [place] coronary artery without angina pectoris (2) Advanced age Status: Chronic Current Visit: Yes (3) Generalized weakness Status: Acute Current Visit: Yes (4) Type 2 diabetes mellitus Status: Chronic Current Visit: Yes (5) Chronic kidney disease Status: Chronic Current Visit: Yes (6) Congestive heart failure Status: Chronic Current Visit: No Cardiology - PN: Subj Interval history: Catastrophe Claims Supervisor: Dr. Philip Summary: Ms. Wise is a 87 year old female with a history of CAD, diabetes, GERD, CHF, and chronic kidney disease. Ms. Wise is sleeping and the daughter assisted with her history. On May 15, 2015 she had mid RCA stented and on June 02, 2015 she had overlapping stents placed and her LAD. Echocardiogram done in Dr. Philip's office June 25, 2016 with ejection fraction of 60%, mild mitral regurgitation, mild to moderate tricuspid regurgitation, and trace pulmonic regurgitation. Stress test in Dr. Philip's office in August 2015 was normal. Other surgical history includes appendectomy, amputation of great toe, hemorrhoidectomy, D&C, and bilateral cataract surgery. Family history is positive for mother with hypertension and diabetes, daughter with hypertension and diabetes, brother with end-stage renal disease and AK, and sister with AK and renal disease. Ms. Wise's daughter states she was taken to [facility] April 26 because of complaints of weakness, dyspnea on exertion, and a temp of 100. She says she was also complaining of generalized body aches and one episode of abdominal pain with vomiting. She is not sure how long the symptoms have been going on, she thinks they probably have been going on for a week or more but states her mother just started complaining of them yesterday. She was transferred this morning to [facility] for further evaluation. Gallbladder ultrasound indicated multiple small stones present. Pertinent lab from [facility]: WBC 17.2, sodium 136, creatinine 2.02, CK 450, CK-MB 7, troponin was negative, proBNP 1533.1. EKG showed normal sinus rhythm with heart rate of 77. January 27, 2017: This morning Ms. Wise is awake and alert. She denies any chest pain. Oxygen is in use via nasal cannula, she denies any shortness of breath. Vital signs been stable throughout the night. Chest x-ray this morning without any acute cardiopulmonary findings. She is scheduled for percutaneous drainage placement today per interventional radiology, her Effient is on hold at this time. Exam (Progress Note) - Constitutional Vitals: Period Temp Pulse Resp BP Sys/Ecsobar Pulse Ox Last 24 Hr 97.7 F-98.7 F 62-76 16-20 106-147/52-80 95-99 Exam: General: Present: Appears Well, No Apparent Distress HEENT: Present: PERRL, Mucus Membranes Moist Neck: Present: Supple Neck, Midline Trachea Cardiac: Present: Reg Rate and Rhythm. Absent: Tachycardia, Bradycardia Lungs: Present: Normal Breath Sounds, No Wheeze, Rales, Rhonchi Neuro: Absent: Resting Tremor, Essential Tremor Abdomen: Present: Soft, Active Bowel Sounds. Absent: Distended Skin: Absent: Rash, Suspicious Lesions Extremities: Present: Normal Upper Extr. Pulses, Edema (Brawny edema to bilateral lower extremities). Absent: Normal Lower Extr. Pulses (Weak pulses) Result/EKG - Labs CBC & BMP: 01/27/17 07:57 01/27/17 07:57 Lab Results: I have reviewed the past 24 hour labs Labs: Laboratory Results - last 24 hr 01/26/17 01/26/17 01/26/17 15:24 17:30 19:43 WBC RBC Hgb Hct MCV MCH MCHC RDW Plt Count MPV Neut % (Auto) Lymph % (Auto) [place] % (Auto) Eos % (Auto) Baso % (Auto) Neut # (Auto) Lymph # (Auto) [place] # (Auto) Eos # (Auto) Baso # (Auto) Immature Gran % Nucleated RBC % Immature Gran # Nucleated RBCs # Immature Plt Fraction INR PT Patient/Control Mix Sodium Potassium Chloride Carbon Dioxide Anion Gap BUN Creatinine GFR Calculation BUN/Creatinine Ratio Glucose POC Glucose 99 91 Hemoglobin A1c Calculated Osmolality Calcium Magnesium Total Bilirubin AST ALT Alkaline Phosphatase B-Natriuretic Peptide Total Protein Albumin Globulin Albumin/Globulin Ratio Triglycerides Cholesterol LDL Cholesterol VLDL Cholesterol HDL Cholesterol Heart Disease Risk Ratio Urine Color Yellow Urine Appearance Clear Urine pH 5.0 Ur Specific [place] 1.008 Urine Protein Negative Urine Glucose (UA) Negative Urine Ketones Negative Urine Blood Negative Urine Nitrate Negative Urine Bilirubin Negative Urine Urobilinogen < 2.0 H Urine Leukocytes Negative Urine WBC 1 Hyaline Casts 8 Ur Culture Indicated? Not indicated 01/26/17 01/27/17 01/27/17 21:18 07:38 07:57 WBC RBC Hgb Hct MCV MCH MCHC RDW Plt Count MPV Neut % (Auto) Lymph % (Auto) [place] % (Auto) Eos % (Auto) Baso % (Auto) Neut # (Auto) Lymph # (Auto) [place] # (Auto) Eos # (Auto) Baso # (Auto) Immature Gran % Nucleated RBC % Immature Gran # Nucleated RBCs # Immature Plt Fraction INR 1.1 PT Patient/Control Mix 12.0 Sodium Potassium Chloride Carbon Dioxide Anion Gap BUN Creatinine GFR Calculation BUN/Creatinine Ratio Glucose POC Glucose 219 H 193 H Hemoglobin A1c Calculated Osmolality Calcium Magnesium Total Bilirubin AST ALT Alkaline Phosphatase B-Natriuretic Peptide Total Protein Albumin Globulin Albumin/Globulin Ratio Triglycerides Cholesterol LDL Cholesterol VLDL Cholesterol HDL Cholesterol Heart Disease Risk Ratio Urine Color Urine Appearance Urine pH Ur Specific [place] Urine Protein Urine Glucose (UA) Urine Ketones Urine Blood Urine Nitrate Urine Bilirubin Urine Urobilinogen Urine Leukocytes Urine WBC Hyaline Casts Ur Culture Indicated? 01/27/17 01/27/17 01/27/17 07:57 07:57 07:57 WBC 8.8 RBC 3.71 L Hgb 10.1 L Hct 30.4 L MCV 81.9 L MCH 27 MCHC 33.2 RDW 16.5 Plt Count 182 MPV 11.4 Neut % (Auto) 73.5 Lymph % (Auto) 10.7 L [place] % (Auto) 8.8 Eos % (Auto) 6.5 Baso % (Auto) 0.2 Neut # (Auto) 6.5 Lymph # (Auto) 0.9 L [place] # (Auto) 0.8 Eos # (Auto) 0.6 Baso # (Auto) 0.0 Immature Gran % 0.3 Nucleated RBC % 0.0 Immature Gran # 0.03 Nucleated RBCs # 0.00 Immature Plt Fraction 0.0 INR PT Patient/Control Mix Sodium 138 Potassium 4.2 Chloride 104 Carbon Dioxide 29 Anion Gap 9.2 BUN 25 H Creatinine 2.10 H GFR Calculation 27 BUN/Creatinine Ratio 11.00 Glucose 200 H POC Glucose Hemoglobin A1c Calculated Osmolality 284.7 Calcium 8.2 L Magnesium 2.1 Total Bilirubin 0.80 AST 81 H ALT 91 H Alkaline Phosphatase 197 H B-Natriuretic Peptide 168 H Total Protein 6.0 L Albumin 2.8 L Globulin 3.2 Albumin/Globulin Ratio 0.8 L Triglycerides 124 Cholesterol 125 LDL Cholesterol 62.0 VLDL Cholesterol 24.8 HDL Cholesterol 35 L Heart Disease Risk Ratio 3.57 Urine Color Urine Appearance Urine pH Ur Specific [place] Urine Protein Urine Glucose (UA) Urine Ketones Urine Blood Urine Nitrate Urine Bilirubin Urine Urobilinogen Urine Leukocytes Urine WBC Hyaline Casts Ur Culture Indicated? 01/27/17 07:57 WBC RBC Hgb Hct MCV MCH MCHC RDW Plt Count MPV Neut % (Auto) Lymph % (Auto) [place] % (Auto) Eos % (Auto) Baso % (Auto) Neut # (Auto) Lymph # (Auto) [place] # (Auto) Eos # (Auto) Baso # (Auto) Immature Gran % Nucleated RBC % Immature Gran # Nucleated RBCs # Immature Plt Fraction INR PT Patient/Control Mix Sodium Potassium Chloride Carbon Dioxide Anion Gap BUN Creatinine GFR Calculation BUN/Creatinine Ratio Glucose POC Glucose Hemoglobin A1c 9.5 H Calculated Osmolality Calcium Magnesium Total Bilirubin AST ALT Alkaline Phosphatase B-Natriuretic Peptide Total Protein Albumin Globulin Albumin/Globulin Ratio Triglycerides Cholesterol LDL Cholesterol VLDL Cholesterol HDL Cholesterol Heart Disease Risk Ratio Urine Color Urine Appearance Urine pH Ur Specific [place] Urine Protein Urine Glucose (UA) Urine Ketones Urine Blood Urine Nitrate Urine Bilirubin Urine Urobilinogen Urine Leukocytes Urine WBC Hyaline Casts Ur Culture Indicated? - Diagnostic Findings Procedure: Chest x-ray: report reviewed by me Quality Measures - VTE Contraindication to Pharmacological VTE Prophylaxis: Already on Theraputic Agent , No Prophylaxis Needed Nguyen Mcnair Dale, MD, personally performed the services described in this documentation, ascribed by Zenia Hough RN in my presence, and it is both accurate and complete 518 .
[2017-01-28 06:44] LABS: Basophils % 0.1 % (0.0-0.8); Eosinophils # 0.5 10*3/uL (0.0-0.87); Eosinophils % 6.6 % (0.00-10.9); Hematocrit 29.6 VOL% (35.7-47.0); Hemoglobin 9.8 GM/DL (12.0-16.0); Immature Granulocytes % 0.4 %; Immature Granulocytes Absolute 0.03 #; Lymphocytes # 1.2 10*3/uL (1.4-4.0); Lymphocytes % 15.5 % (21.3-54.2); Mean Corpuscular HGB Conc 33.1 GM/DL (32-36); Mean Corpuscular Hemoglobin 27 PG (27-34); Mean Corpuscular Volume 82.5 FL (87-102); Monocytes # 0.8 10*3/uL (0.11-0.8); Monocytes % 9.7 % (1.7-12.7); Neutrophils # 5.3 10*3/uL (1.4-7.4); Neutrophils % 67.7 % (38.7-73.9); Platelet Count 188 T/CUMM (130-400); Red Blood Count 3.59 MC/CUMM (3.8-5.5); Red Cell Distribution Width 16.6 % (9.3-17.3); White Blood Count 7.8 T/CUMM (4-12)
[2017-01-28 07:24] LABS: Albumin 2.7 G/DL (3.4-5.0); Bilirubin,Total 0.5 MG/DL (0.2-1.0); Calcium 8.3 MG/DL (8.5-10.1); Osmolality,Calculated 288.7 MOS/KG (273-304); Phosphorous 2.8 MG/DL (2.5-4.9); Potassium 4.2 MMOL/L (3.5-5.1); Total Protein 5.8 G/DL (6.4-8.3)
[2017-01-28] MEDS: ASPIRIN EC 81 MG TABLET PO SCH (08:12)
[2017-01-28] MEDS: ALLOPURINOL 100 MG TABLET PO SCH (08:12)
[2017-01-28] MEDS: CARVEDILOL 12.5 MG TABLET PO SCH ×2 (08:12→21:49)
[2017-01-28] MEDS: FUROSEMIDE 80 MG TABLET PO SCH ×3 (08:12→18:53)
[2017-01-28] MEDS: INSULIN REGULAR 100 UNIT/ML SUBCUT SCH ×4 (08:22→22:46)
--- NOTE | 2017-01-28 08:50 | Hospitalist Progress Note ---
Assessment and Plan (1) Abdominal pain Status: Acute Assessment and plan: The patient experienced right lower quadrant abdominal pain upon gentle palpation. Gallbladder ultrasound revealed moderate amount of gallstones. We will keep the patient n.p.o., start empiric antibiotic coverage, pain management , protein pump inhibitors, and consult surgery to evaluate. 01/27-patient seen and evaluated by surgery on yesterday. We appreciate the input and agree with the recommendations for avoidance of surgical intervention. The patient has been scheduled for percutaneous drain placement per IR today. We will continue n.p.o. status, empiric antibiotic coverage, pain management, and PPIs as previously ordered. 01/28-percutaneous drain placement per IR placed on hold yesterday due to recent anticoagulation. We will continue n.p.o. status, empiric antibiotic coverage, pain management, and protein pump inhibitors. Current Visit: Yes (2) Congestive heart failure Status: Chronic Assessment and plan: ProBNP was reported at 1533. The patient reported shortness of breath and dyspnea upon minimal exertion. The patient currently takes 240 mg of furosemide daily 80 mg at the hour of sleep and 160 mg every morning. We will obtain echocardiogram to evaluate heart function. In addition, the patient underwent cardiac catheterization with stent placement 5. The patient is currently taking Effient for coagulation purposes. Due to the severity of the patient's cardiovascular disease, we will consult cardiology to evaluate and assist during the clinical encounter. We will obtain chest x-ray, CMP, and BNP in a.m 01/27-The patient was evaluated by cardiology on yesterday. We appreciate the input. We will continue current plan of care per cardiology recommendation. Current Visit: No (3) Chronic renal insufficiency Status: Chronic Assessment and plan: Upon review of the external facility record, the patient's BUN and creatinine was noted at 25/2.20. Upon further investigation, during the last clinical encounter in which the patient was hospitalized here at [facility] on May 18, 2015, the patient's BUN and creatinine was noted at 20/1.73. This is a moderate increase since the previous clinical encounter. We will monitor the patient's renal function closely. We will recheck labs in a.m. 01/27-BUN and creatinine noted at 25/2.10. A mild decrease from 25/2.20 on yesterday. We will continue gentle hydration and recheck labs in a.m. Current Visit: No (4) Type 2 diabetes mellitus Status: Chronic Assessment and plan: We will obtain hemoglobin A1c and start Accu-Cheks with sliding scale coverage. 01/27-hemoglobin A1c noted at 9.5. This is a clear indication of poor glycemic control. We will continue Accu-Cheks with sliding scale coverage as previously ordered. We will review current diabetic regimen and adjust accordingly. The patient may benefit from a long-acting insulin regimen at bedtime once feedings are resumed. Current Visit: Yes Hospitalist: Subjective Interval history: Patient seen and examined; chart reviewed. No significant overnight events reported per staff. Percutaneous drain placement today; placed on hold on yesterday due to recent anticoagulation. Exam - Constitutional Vitals: Period Temp Pulse Resp BP Sys/Escobar Pulse Ox Last 24 Hr 97.5 F-98.5 F 67-76 18-20 115-140/57-66 97-99 General appearance: normal weight, no acute distress - Head Head exam: Present: normal inspection, normocephalic, atraumatic - Eye Eye exam: Present: EOMI. Absent: conjunctival injection Pupils: Present: LYSSA, normal accommodation - ENT ENT exam: Present: normal exam, normal external ear exam, normal oropharynx - Neck Neck exam: Present: normal inspection. Absent: lymphadenopathy, meningismus, tenderness, thyromegaly - Respiratory Respiratory exam: Present: clear to auscultation bilaterally. Absent: rales, rhonchi, stridor, wheezes - Cardiovascular Cardiovascular exam: Present: regular rate and rhythm. Absent: carotid bruit, diastolic murmur, gallop, JVD, rubs, systolic murmur - GI/Abdominal GI/Abdominal exam: Present: normal bowel sounds, tenderness (Slight tenderness noted upon gentle palpation), soft - Extremities Exam Extremities exam: Present: normal inspection, normal capillary refill, full ROM. Absent: edema - Neurological Exam Neurological exam: Present: alert, oriented X3, CN II-XII intact - Psychiatric Psychiatric exam: Present: normal affect, normal mood - Skin Skin exam: Present: normal color, warm, dry Results - Labs CBC & BMP: 01/28/17 04:49 01/28/17 04:49 Lab Results: I have reviewed the past 24 hour labs Quality Measures - VTE Contraindication to Pharmacological VTE Prophylaxis: Already on Theraputic Agent , No Prophylaxis Needed
--- NOTE | 2017-01-28 09:54 | General Surgery Progress Note ---
Assessment and Plan - Time spent with patient Time spent with patient: Less than 30 minutes (1) Abdominal pain Status: Acute Assessment and plan: She looks and feels much better. She denies abdominal pain currently. She is a much more awake and alert. She seems to be responding to antibiotics. I discussed her case with interventional radiology. They are concerned about the Effient. They are delaying this because of the recent anticoagulation. Either way she appears to be improving. 01/28: She denies any abdominal pain now. She is awake and alert. Her abdomen is completely nontender and she is now afebrile with a normal white blood cell count. It appears that she is responded to IV antibiotics. I would not recommend surgery. It is not unreasonable to do a percutaneous drain but if you decided not to do the drain I think it would be reasonable to treat her with antibiotics only. She is essentially symptom-free at this time. Current Visit: Yes Subjective Patient reports: Present: feels better. Absent: still having pain, nausea, vomiting, shortness of breath, fever Exam - Constitutional Vitals: Period Temp Pulse Resp BP Sys/Escobar Pulse Ox Last 24 Hr 96.7 F-98.5 F 67-76 18-20 115-140/53-66 97-99 General appearance: no acute distress - Head Head exam: Present: normocephalic - Eye Eye exam: Absent: scleral icterus - Respiratory Respiratory exam: Absent: accessory muscle use - GI/Abdominal GI/Abdominal exam: Present: soft. Absent: distended, tenderness, rebound Results - Labs CBC & BMP: 01/28/17 04:49 01/28/17 04:49 Lab Results: I have reviewed the past 24 hour labs Quality Measures - VTE Contraindication to Pharmacological VTE Prophylaxis: Already on Theraputic Agent , No Prophylaxis Needed
[2017-01-28 09:58] LABS: INR 1.1; PT Patient Result 11.6 SECS
[2017-01-28] MEDS: SODIUM CHLORIDE 0.9% 1,000 ML IV SCH (13:44)
--- NOTE | 2017-01-28 18:04 | Event Note ---
Patient seen this morning and is doing well. There is no tenderness to palpation of the right upper quadrant. She is also tolerating a diet. She is afebrile with no white count. Given the improvement with IV antibiotics, continued conservative management is the most appropriate course at this time. She does have significant gallstone disease on ultrasound but this does not necessitate drainage - yet. If possible , patient should remain off of her antiplatelet agents in case a drainage catheter (or cholecystectomy) is necessary. Please reconsult IR next week if there are any changes in the patient's condition.
--- NOTE | 2017-01-28 19:01 | Cardiology Progress Note ---
I, Zenia Hough RN, am scribing for, and in the presence of, Arvin Cedillo MD 19:00. Assessment and Plan (1) CAD (coronary artery disease) Status: Chronic Assessment and plan: Initial assessment and plan January 26, 2017: The patient has gallstones, may be causing some symptoms The patient has known coronary stents, but stress test in showed no ischemia, 16 months ago. No no angina suggestive at this time From my standpoint, may proceed with cholecystectomy when you deem best. I would estimate her cardiac risk of the noncardiac surgery would be 2-4% chance of HI arrhythmia or heart failure the main risk being related to her age- -. She had an echo done in showed ejection fraction of 60%. We will not repeat at this time. I will follow along with you Assessment and plan January 27, 2017: No chest pain or shortness breath The patient is being evaluated for a cholecystotomy Holding the Effient I will continue to watch for any signs or symptoms of ischemia. So far, none are seen. Assessment and plan January 28, 2017: No chest pain or shortness of breath She is off the Effient for now We will ensure that she is at least on aspirin 81 mg daily indefinitely I feel sure the percutaneous drainage could be done of the gallbladder on low- dose aspirin today. If it appears we are not to do the drainage, I would recommend restarting the Effient Current Visit: Yes Qualifiers: Coronary Disease-Associated Artery/Lesion type: gambell artery [place] vs. transplanted heart: gambell heart Associated angina: without angina Qualified Code(s): I25.10 - Atherosclerotic heart disease of gambell coronary artery without angina pectoris (2) Advanced age Status: Chronic Current Visit: Yes (3) Generalized weakness Status: Acute Current Visit: Yes (4) Type 2 diabetes mellitus Status: Chronic Current Visit: Yes (5) Chronic kidney disease Status: Chronic Current Visit: Yes (6) Congestive heart failure Status: Chronic Current Visit: No Cardiology - PN: Subj Interval history: Sisal Picker: Dr. Philip Summary: Ms. Wise is a 87 year old female with a history of CAD, diabetes, GERD, CHF, and chronic kidney disease. Ms. Wise is sleeping and the daughter assisted with her history. On May 15, 2015 she had mid RCA stented and on June 02, 2015 she had overlapping stents placed and her LAD. Echocardiogram done in Dr. Philip's office June 25, 2016 with ejection fraction of 60%, mild mitral regurgitation, mild to moderate tricuspid regurgitation, and trace pulmonic regurgitation. Stress test in Dr. Philip's office in August 2015 was normal. Other surgical history includes appendectomy, amputation of great toe, hemorrhoidectomy, D&C, and bilateral cataract surgery. Family history is positive for mother with hypertension and diabetes, daughter with hypertension and diabetes, brother with end-stage renal disease and HI, and sister with HI and renal disease. Ms. Wise's daughter states she was taken to [facility] April 26 because of complaints of weakness, dyspnea on exertion, and a temp of 100. She says she was also complaining of generalized body aches and one episode of abdominal pain with vomiting. She is not sure how long the symptoms have been going on, she thinks they probably have been going on for a week or more but states her mother just started complaining of them yesterday. She was transferred this morning to [facility] for further evaluation. Gallbladder ultrasound indicated multiple small stones present. Pertinent lab from [facility]: WBC 17.2, sodium 136, creatinine 2.02, CK 450, CK-MB 7, troponin was negative, proBNP 1533.1. EKG showed normal sinus rhythm with heart rate of 77. January 27, 2017: This morning Ms. Wise is awake and alert. She denies any chest pain. Oxygen is in use via nasal cannula, she denies any shortness of breath. Vital signs been stable throughout the night. Chest x-ray this morning without any acute cardiopulmonary findings. She is scheduled for percutaneous drainage placement today per interventional radiology, her Effient is on hold at this time. January 28, 2017: Ms. Wise denies any chest pain or shortness of breath. Oxygen is in use via nasal cannula. Vital signs been stable throughout the night. Her creatinine has improved this morning to 1.8. She did not get percutaneous drainage tube placement yesterday. They are concerned about the recent anticoagulation. Her Effient is currently on hold. Exam (Progress Note) - Constitutional Vitals: Period Temp Pulse Resp BP Sys/Escobar Pulse Ox Last 24 Hr 96.7 F-98.5 F 67-76 18-20 115-140/53-66 97-99 Exam: General: Present: Appears Well, No Apparent Distress HEENT: Present: PERRL, Mucus Membranes Moist Neck: Present: Supple Neck, Midline Trachea Cardiac: Present: Reg Rate and Rhythm. Absent: Tachycardia, Bradycardia Lungs: Present: Normal Breath Sounds, No Wheeze, Rales, Rhonchi Neuro: Absent: Resting Tremor, Essential Tremor Abdomen: Present: Soft, Active Bowel Sounds. Absent: Distended Skin: Absent: Rash, Suspicious Lesions Extremities: Present: Normal Upper Extr. Pulses, Edema (Brawny edema to bilateral lower extremities). Absent: Normal Lower Extr. Pulses (Weak pulses) Result/EKG - Labs CBC & BMP: 01/28/17 04:49 01/28/17 04:49 Lab Results: I have reviewed the past 24 hour labs Labs: Laboratory Results - last 24 hr 01/27/17 01/27/17 01/27/17 11:52 16:45 20:47 WBC RBC Hgb Hct MCV MCH MCHC RDW Plt Count MPV Neut % (Auto) Lymph % (Auto) Carroll % (Auto) Eos % (Auto) Baso % (Auto) Neut # (Auto) Lymph # (Auto) Carroll # (Auto) Eos # (Auto) Baso # (Auto) Immature Gran % Nucleated RBC % Immature Gran # Nucleated RBCs # Immature Plt Fraction Sodium Potassium Chloride Carbon Dioxide Anion Gap BUN Creatinine GFR Calculation BUN/Creatinine Ratio Glucose POC Glucose 228 H 240 H 102 Calculated Osmolality Calcium Phosphorus Magnesium Total Bilirubin AST ALT Alkaline Phosphatase Total Protein Albumin Globulin Albumin/Globulin Ratio 01/28/17 01/28/17 01/28/17 04:49 04:49 07:35 WBC 7.8 RBC 3.59 L Hgb 9.8 L Hct 29.6 L MCV 82.5 L MCH 27 MCHC 33.1 RDW 16.6 Plt Count 188 MPV 12.0 Neut % (Auto) 67.7 Lymph % (Auto) 15.5 L Carroll % (Auto) 9.7 Eos % (Auto) 6.6 Baso % (Auto) 0.1 Neut # (Auto) 5.3 Lymph # (Auto) 1.2 L Carroll # (Auto) 0.8 Eos # (Auto) 0.5 Baso # (Auto) 0.0 Immature Gran % 0.4 Nucleated RBC % 0.0 Immature Gran # 0.03 Nucleated RBCs # 0.00 Immature Plt Fraction 0.0 Sodium 138 Potassium 4.2 Chloride 103 Carbon Dioxide 28 Anion Gap 11.2 BUN 23 H Creatinine 1.80 H GFR Calculation 33 BUN/Creatinine Ratio 12.00 Glucose 272 H POC Glucose 343 H Calculated Osmolality 288.7 Calcium 8.3 L Phosphorus 2.8 Magnesium 2.0 Total Bilirubin 0.50 AST 51 H ALT 62 H Alkaline Phosphatase 196 H Total Protein 5.8 L Albumin 2.7 L Globulin 3.1 Albumin/Globulin Ratio 0.8 L - Diagnostic Findings Procedure: Chest x-ray: report reviewed by me Quality Measures - VTE Contraindication to Pharmacological VTE Prophylaxis: Already on Theraputic Agent , No Prophylaxis Needed INguyen Dale, MD, personally performed the services described in this documentation, ascribed by Zenia Hough RN in my presence, and it is both accurate and complete [id number] .
[2017-01-28] MEDS ORDERED: ALUMINUM/MAGNES/SIMETH MAX STR 30 ML UDCUP PO PRN (21:17)
[2017-01-29] MEDS: DEXTROSE 5% NACL 0.22% 1,000 ML IV SCH
[2017-01-29] MEDS: metroNIDAZOLE INJ 500 MG in PREMIX 1 EACH IV SCH ×3 (01:30→16:43)
[2017-01-29 03:46] LABS: Basophils % 0.3 % (0.0-0.8); Eosinophils # 0.4 10*3/uL (0.0-0.87); Eosinophils % 5.6 % (0.00-10.9); Hematocrit 29.7 VOL% (35.7-47.0); Hemoglobin 9.9 GM/DL (12.0-16.0); Immature Granulocytes % 0.4 %; Immature Granulocytes Absolute 0.03 #; Lymphocytes # 1.5 10*3/uL (1.4-4.0); Lymphocytes % 19.6 % (21.3-54.2); Mean Corpuscular HGB Conc 33.3 GM/DL (32-36); Mean Corpuscular Hemoglobin 27 PG (27-34); Mean Corpuscular Volume 80.7 FL (87-102); Mean Platelet Volume 11.2 FL (9.6-12.0); Monocytes # 0.8 10*3/uL (0.11-0.8); Monocytes % 10.1 % (1.7-12.7); Neutrophils # 4.8 10*3/uL (1.4-7.4); Platelet Count 187 T/CUMM (130-400); Red Blood Count 3.68 MC/CUMM (3.8-5.5); Red Cell Distribution Width 15.9 % (9.3-17.3); White Blood Count 7.5 T/CUMM (4-12)
[2017-01-29 04:28] LABS: Albumin 2.9 G/DL (3.4-5.0); Bilirubin,Total 0.7 MG/DL (0.2-1.0); Calcium 8.2 MG/DL (8.5-10.1); Magnesium 1.8 MG/DL (1.8-2.4); Osmolality,Calculated 288.4 MOS/KG (273-304); Phosphorous 2.7 MG/DL (2.5-4.9); Potassium 3.7 MMOL/L (3.5-5.1)
[2017-01-29] MEDS: INSULIN REGULAR 100 UNIT/ML SUBCUT SCH ×4 (08:51→21:38)
[2017-01-29] MEDS: ASPIRIN EC 81 MG TABLET PO SCH (08:52)
[2017-01-29] MEDS: FUROSEMIDE 80 MG TABLET PO SCH ×3 (08:52→18:23)
[2017-01-29] MEDS: CARVEDILOL 12.5 MG TABLET PO SCH ×2 (08:52→21:25)
[2017-01-29] MEDS: ALLOPURINOL 100 MG TABLET PO SCH (08:52)
[2017-01-29] MEDS: SODIUM CHLORIDE 0.9% 1,000 ML IV SCH (08:53)
--- NOTE | 2017-01-29 09:14 | Hospitalist Progress Note ---
Assessment and Plan (1) Abdominal pain Status: Acute Assessment and plan: The patient experienced right lower quadrant abdominal pain upon gentle palpation. Gallbladder ultrasound revealed moderate amount of gallstones. We will keep the patient n.p.o., start empiric antibiotic coverage, pain management , protein pump inhibitors, and consult surgery to evaluate. 01/27-patient seen and evaluated by surgery on yesterday. We appreciate the input and agree with the recommendations for avoidance of surgical intervention. The patient has been scheduled for percutaneous drain placement per IR today. We will continue n.p.o. status, empiric antibiotic coverage, pain management, and PPIs as previously ordered. 01/28-percutaneous drain placement per IR placed on hold yesterday due to recent anticoagulation. We will continue n.p.o. status, empiric antibiotic coverage, pain management, and protein pump inhibitors. 01/29-no invasive intervention warranted at this time. We will treat conservatively. The patient's diet has been advanced; she is tolerating solid foods well. We will continue empiric antibiotic coverage pain management, and protein pump inhibitors. Current Visit: Yes (2) Congestive heart failure Status: Chronic Assessment and plan: ProBNP was reported at 1533. The patient reported shortness of breath and dyspnea upon minimal exertion. The patient currently takes 240 mg of furosemide daily 80 mg at the hour of sleep and 160 mg every morning. We will obtain echocardiogram to evaluate heart function. In addition, the patient underwent cardiac catheterization with stent placement 5. The patient is currently taking Effient for coagulation purposes. Due to the severity of the patient's cardiovascular disease, we will consult cardiology to evaluate and assist during the clinical encounter. We will obtain chest x-ray, CMP, and BNP in a.m 01/27-The patient was evaluated by cardiology on yesterday. We appreciate the input. We will continue current plan of care per cardiology recommendation. 01/29-the patient was evaluated by cardiology this morning. We appreciate the input. We will resume 81 mg aspirin however, we will hold on Effient. We agree with manager data warehousing recommendation to resume Effient on Tuesday of next week. Current Visit: No (3) Chronic renal insufficiency Status: Chronic Assessment and plan: Upon review of the external facility record, the patient's BUN and creatinine was noted at 25/2.20. Upon further investigation, during the last clinical encounter in which the patient was hospitalized here at [facility] on May 18, 2015, the patient's BUN and creatinine was noted at 20/1.73. This is a moderate increase since the previous clinical encounter. We will monitor the patient's renal function closely. We will recheck labs in a.m. 9/7-BUN and creatinine noted at 25/2.10. A mild decrease from 25/2.20 on yesterday. We will continue gentle hydration and recheck labs in a.m. 9/8-BUN and creatinine improved; noted at 17/1.6. We will continue rehydration as previously ordered. Will recheck labs in a.m. Current Visit: No (4) Type 2 diabetes mellitus Status: Chronic Assessment and plan: We will obtain hemoglobin A1c and start Accu-Cheks with sliding scale coverage. 01/27-hemoglobin A1c noted at 9.5. This is a clear indication of poor glycemic control. We will continue Accu-Cheks with sliding scale coverage as previously ordered. We will review current diabetic regimen and adjust accordingly. The patient may benefit from a long-acting insulin regimen at bedtime once feedings are resumed. Current Visit: Yes Hospitalist: Subjective Interval history: Patient seen and examined; chart reviewed. No significant overnight events reported per staff. No invasive intervention warranted at this time. Family is present at bedside; status report given. Exam - Constitutional Vitals: Period Temp Pulse Resp BP Sys/Escobar Pulse Ox Last 24 Hr 97.9 F-99.2 F 70-77 18-20 115-158/63-69 94-99 General appearance: normal weight, no acute distress - Head Head exam: Present: normal inspection, normocephalic - Eye Eye exam: Present: EOMI, conjunctival injection Pupils: Present: LYSSA, normal accommodation - ENT ENT exam: Present: normal exam, normal external ear exam, normal oropharynx - Neck Neck exam: Present: normal inspection. Absent: lymphadenopathy, meningismus, tenderness, thyromegaly - Respiratory Respiratory exam: Present: clear to auscultation bilaterally. Absent: rales, rhonchi, stridor, wheezes - Cardiovascular Cardiovascular exam: Present: regular rate and rhythm. Absent: carotid bruit, diastolic murmur, gallop, JVD, rubs, systolic murmur - GI/Abdominal GI/Abdominal exam: Present: normal bowel sounds, soft. Absent: tenderness - Extremities Exam Extremities exam: Present: normal inspection, normal capillary refill, full ROM. Absent: edema - Back Exam Back exam: Present: normal inspection - Neurological Exam Neurological exam: Present: alert, oriented X3, CN II-XII intact - Psychiatric Psychiatric exam: Present: normal affect, normal mood - Skin Skin exam: Present: normal color, warm, dry Results - Labs CBC & BMP: 01/29/17 02:11 01/29/17 02:11 Lab Results: I have reviewed the past 24 hour labs Quality Measures - VTE Contraindication to Pharmacological VTE Prophylaxis: Already on Theraputic Agent , No Prophylaxis Needed
--- NOTE | 2017-01-29 11:23 | General Surgery Progress Note ---
Assessment and Plan (1) Abdominal pain Status: Acute Assessment and plan: She looks and feels much better. She denies abdominal pain currently. She is a much more awake and alert. She seems to be responding to antibiotics. I discussed her case with interventional radiology. They are concerned about the Effient. They are delaying this because of the recent anticoagulation. Either way she appears to be improving. 01/28: She denies any abdominal pain now. She is awake and alert. Her abdomen is completely nontender and she is now afebrile with a normal white blood cell count. It appears that she is responded to IV antibiotics. I would not recommend surgery. It is not unreasonable to do a percutaneous drain but if you decided not to do the drain I think it would be reasonable to treat her with antibiotics only. She is essentially symptom-free at this time. 01/29: She denies any abdominal pain she has no tenderness. She is symptom-free at this point. While waiting for her anticoagulation to wear off we held off doing a percutaneous drainage and she is become asymptomatic at this point. I do not have strong feelings that she necessarily needs any interventional procedure at this point. I certainly feel like surgery should be a last resort. I will sign off of the case for now but will be happy to see her back in the future if needed. Current Visit: Yes Subjective Patient reports: Present: feels better. Absent: still having pain, nausea, vomiting Exam - Constitutional Vitals: Period Temp Pulse Resp BP Sys/Escobar Pulse Ox Last 24 Hr 97.9 F-99.2 F 70-77 18-20 115-158/63-69 93-99 General appearance: no acute distress - Eye Eye exam: Absent: scleral icterus - Respiratory Respiratory exam: Absent: accessory muscle use - GI/Abdominal GI/Abdominal exam: Present: soft. Absent: distended, Bravo's sign, tenderness , rebound Results - Labs CBC & BMP: 01/29/17 02:11 01/29/17 02:11 Lab Results: I have reviewed the past 24 hour labs Quality Measures - VTE Contraindication to Pharmacological VTE Prophylaxis: Already on Theraputic Agent , No Prophylaxis Needed
[2017-01-29] MEDS: CIPROFLOXACIN INJ 400 MG in PREMIX 1 EACH IV SCH ×2 (12:30)
--- NOTE | 2017-01-29 15:50 | Cardiology Progress Note ---
Assessment and Plan (1) CAD (coronary artery disease) Status: Chronic Assessment and plan: Initial assessment and plan January 26, 2017: The patient has gallstones, may be causing some symptoms The patient has known coronary stents, but stress test in showed no ischemia, 16 months ago. No no angina suggestive at this time From my standpoint, may proceed with cholecystectomy when you deem best. I would estimate her cardiac risk of the noncardiac surgery would be 2-4% chance of SD arrhythmia or heart failure the main risk being related to her age- -. She had an echo done in 7 showed ejection fraction of 60%. We will not repeat at this time. I will follow along with you Assessment and plan January 27, 2017: No chest pain or shortness breath The patient is being evaluated for a cholecystotomy Holding the Effient I will continue to watch for any signs or symptoms of ischemia. So far, none are seen. Assessment and plan January 28, 2017: No chest pain or shortness of breath She is off the Effient for now We will ensure that she is at least on aspirin 81 mg daily indefinitely I feel sure the percutaneous drainage could be done of the gallbladder on low- dose aspirin today. If it appears we are not to do the drainage, I would recommend restarting the Effient 01/29/17: No angina No overt heart failure No gallbladder symptoms We are allowing her to eat what she wants and challenges the gallbladder It appears antibiotics have reversed the cholecystitis and she may not need surgery or a percutaneous cholecystostomy After she is discharged I will have her see Dr. Freddy Philip in 4 weeks Current Visit: Yes Qualifiers: Coronary Disease-Associated Artery/Lesion type: [place] artery [place] vs. transplanted heart: [place] heart Associated angina: without angina Qualified Code(s): I25.10 - Atherosclerotic heart disease of [place] coronary artery without angina pectoris (2) Advanced age Status: Chronic Current Visit: Yes (3) Generalized weakness Status: Acute Current Visit: Yes (4) Type 2 diabetes mellitus Status: Chronic Current Visit: Yes (5) Chronic kidney disease Status: Chronic Current Visit: Yes (6) Congestive heart failure Status: Chronic Current Visit: No Cardiology - PN: Subj Interval history: No chest pain, shortness breath, or abdominal pain Exam (Progress Note) - Constitutional Vitals: Period Temp Pulse Resp BP Sys/Escobar Pulse Ox Last 24 Hr 97.9 F-99.2 F 70-77 18-20 119-158/63-69 93-99 Exam: General: Present: Appears Well, No Apparent Distress HEENT: Present: PERRL, Mucus Membranes Moist Neck: Present: Supple Neck, Midline Trachea Cardiac: Present: Reg Rate and Rhythm. Absent: Tachycardia, Bradycardia Lungs: Present: Normal Breath Sounds, No Wheeze, Rales, Rhonchi Neuro: Absent: Resting Tremor, Essential Tremor Abdomen: Present: Soft, Active Bowel Sounds. Absent: Distended Skin: Absent: Rash, Suspicious Lesions Extremities: Present: Normal Upper Extr. Pulses, Edema (Brawny edema to bilateral lower extremities). Absent: Normal Lower Extr. Pulses (Weak pulses) Result/EKG - Labs CBC & BMP: 01/29/17 02:11 01/29/17 02:11 Labs: Laboratory Results - last 24 hr 01/28/17 01/28/17 01/28/17 16:54 19:48 21:01 WBC RBC Hgb Hct MCV MCH MCHC RDW Plt Count MPV Neut % (Auto) Lymph % (Auto) [place] % (Auto) Eos % (Auto) Baso % (Auto) Neut # (Auto) Lymph # (Auto) [place] # (Auto) Eos # (Auto) Baso # (Auto) Immature Gran % Nucleated RBC % Immature Gran # Nucleated RBCs # Immature Plt Fraction Sodium Potassium Chloride Carbon Dioxide Anion Gap BUN Creatinine GFR Calculation BUN/Creatinine Ratio Glucose POC Glucose 183 H 189 H 208 H Calculated Osmolality Calcium Phosphorus Magnesium Total Bilirubin AST ALT Alkaline Phosphatase Total Protein Albumin Globulin Albumin/Globulin Ratio 01/29/17 01/29/17 01/29/17 02:11 02:11 07:36 WBC 7.5 RBC 3.68 L Hgb 9.9 L Hct 29.7 L MCV 80.7 L MCH 27 MCHC 33.3 RDW 15.9 Plt Count 187 MPV 11.2 Neut % (Auto) 64.0 Lymph % (Auto) 19.6 L [place] % (Auto) 10.1 Eos % (Auto) 5.6 Baso % (Auto) 0.3 Neut # (Auto) 4.8 Lymph # (Auto) 1.5 [place] # (Auto) 0.8 Eos # (Auto) 0.4 Baso # (Auto) 0.0 Immature Gran % 0.4 Nucleated RBC % 0.0 Immature Gran # 0.03 Nucleated RBCs # 0.00 Immature Plt Fraction 0.0 Sodium 140 Potassium 3.7 Chloride 102 Carbon Dioxide 31 Anion Gap 10.7 BUN 17 Creatinine 1.60 H GFR Calculation 38 BUN/Creatinine Ratio 10.00 Glucose 238 H POC Glucose 278 H Calculated Osmolality 288.4 Calcium 8.2 L Phosphorus 2.7 Magnesium 1.8 Total Bilirubin 0.70 AST 34 ALT 53 Alkaline Phosphatase 178 H Total Protein 6.0 L Albumin 2.9 L Globulin 3.1 Albumin/Globulin Ratio 0.9 L 01/29/17 11:07 WBC RBC Hgb Hct MCV MCH MCHC RDW Plt Count MPV Neut % (Auto) Lymph % (Auto) [place] % (Auto) Eos % (Auto) Baso % (Auto) Neut # (Auto) Lymph # (Auto) [place] # (Auto) Eos # (Auto) Baso # (Auto) Immature Gran % Nucleated RBC % Immature Gran # Nucleated RBCs # Immature Plt Fraction Sodium Potassium Chloride Carbon Dioxide Anion Gap BUN Creatinine GFR Calculation BUN/Creatinine Ratio Glucose POC Glucose 288 H Calculated Osmolality Calcium Phosphorus Magnesium Total Bilirubin AST ALT Alkaline Phosphatase Total Protein Albumin Globulin Albumin/Globulin Ratio Quality Measures - VTE Contraindication to Pharmacological VTE Prophylaxis: Already on Theraputic Agent , No Prophylaxis Needed Specialty Discharge - Follow Up or Referrals Follow up with: Darrin Philip MD [Physician] - (When the patient is to be discharged, have her see Dr. Freddy Philip back in about 4 to 6 weeks.)
[2017-01-29] MEDS: PRASUGREL 10 MG TABLET PO SCH (17:14)
[2017-01-30] MEDS: DEXTROSE 5% NACL 0.22% 1,000 ML IV SCH (00:19)
[2017-01-30] MEDS: CIPROFLOXACIN INJ 400 MG in PREMIX 1 EACH IV SCH (02:11)
[2017-01-30 06:30] LABS: Basophils % 0.3 % (0.0-0.8); Eosinophils # 0.5 10*3/uL (0.0-0.87); Eosinophils % 6.3 % (0.00-10.9); Hematocrit 30.3 VOL% (35.7-47.0); Hemoglobin 10.2 GM/DL (12.0-16.0); Immature Granulocytes % 0.3 %; Immature Granulocytes Absolute 0.02 #; Lymphocytes # 1.6 10*3/uL (1.4-4.0); Mean Corpuscular HGB Conc 33.7 GM/DL (32-36); Mean Corpuscular Hemoglobin 27 PG (27-34); Mean Corpuscular Volume 81.5 FL (87-102); Mean Platelet Volume 10.9 FL (9.6-12.0); Monocytes # 0.8 10*3/uL (0.11-0.8); Monocytes % 10.6 % (1.7-12.7); Neutrophils # 4.5 10*3/uL (1.4-7.4); Neutrophils % 60.5 % (38.7-73.9); Platelet Count 198 T/CUMM (130-400); Red Blood Count 3.72 MC/CUMM (3.8-5.5); White Blood Count 7.4 T/CUMM (4-12)
[2017-01-30] MEDS: metroNIDAZOLE INJ 500 MG in PREMIX 1 EACH IV SCH (06:44)
[2017-01-30] MEDS: SODIUM CHLORIDE 0.9% 1,000 ML IV SCH (06:45)
[2017-01-30 07:06] LABS: Bilirubin,Total 0.5 MG/DL (0.2-1.0); Calcium 8.3 MG/DL (8.5-10.1); Phosphorous 2.8 MG/DL (2.5-4.9); Total Protein 6.2 G/DL (6.4-8.3)
[2017-01-30 07:07] LABS: Magnesium 1.8 MG/DL (1.8-2.4); Osmolality,Calculated 283.7 MOS/KG (273-304); Potassium 3.5 MMOL/L (3.5-5.1)
[2017-01-30] MEDS: INSULIN REGULAR 100 UNIT/ML SUBCUT SCH ×2 (08:35→12:57)
[2017-01-30] MEDS: ALLOPURINOL 100 MG TABLET PO SCH (08:36)
[2017-01-30] MEDS: FUROSEMIDE 80 MG TABLET PO SCH (08:36)
[2017-01-30] MEDS: PRASUGREL 10 MG TABLET PO SCH (08:36)
[2017-01-30] MEDS: ASPIRIN EC 81 MG TABLET PO SCH (08:36)
[2017-01-30] MEDS: CARVEDILOL 12.5 MG TABLET PO SCH (08:36)
--- NOTE | 2017-01-30 09:37 | Discharge Summary ---
Hospital Course - Hospital Course Hospital Course: Hospital Course - Hospital Course Hospital Course: This is a very pleasant 87-year-old female that presented to the ED at [facility] on all morning of January 26, 2017 as a transfer from the [facility] in [facility] for the further evaluation of weakness. The patient has a very complex medical history significant for coronary artery disease, hypertension, myocardial infarction, depression, gouty arthritis, chronic urinary tract infections, chronic renal insufficiency, hemorrhoids, asthma, pneumonia, and chronic neck and back pain. The patient has a surgical history significant for cardiac catheterization with stent placement 5, appendectomy, hysterectomy, and colonoscopy. The patient reported the onset of symptoms on last night. The family was present at bedside reported that the patient is a poor historian at times and has agreed to serve as historian. The family reported that they noticed that the patient was "shaking, cold, and did not feel well". In addition, they reported a gradual onset of weakness, shortness of breath, and decreased appetite. They reported that the patient started to experience abdominal pain with vomiting 1 on last night. They reported that the patient's symptoms became more severe as the night progressed prompting them to present to the ED at [facility] for further evaluation. The patient was assessed at the time of ED presentation at [facility]. Upon review of the patient's medical record, labs were obtained prior to transfer which were significant for white blood cell count 17.2, hemoglobin 10.2, hematocrit 31.8, sodium 136, creatinine 2.20, BUN 25, glucose 231, alkaline phosphatase 241, ALT 145, AST 192, creatinine kinase 450, CK-MB 7.0, PT 15.1, INR 1.2, amylase 30, lipase 2, proBNP 1533, and lactic acid 1.6. Urinalysis was essentially unremarkable. CT head without IV contrast significant for chronic changes with no definite evidence of acute intracranial abnormality and the presence of mild chronic sinus disease was noted. Abdominal x-ray was significant for cardiomegaly, osteoarthritis however, no acute abnormality was noted. The patient was subsequently admitted to [facility] for continuation of care. Empiric antibiotic coverage bowel rest, pain management and fluid rehydration was initiated at the time of admission. A general surgery and cardiology consultation was requested to assist during the clinical encounter. The patient was evaluated by cardiology and recommendations were given. The patient 's anticoagulation agent was placed on hold pending possible surgical intervention. The patient was evaluated by general surgery. Due to the patient 's extensive comorbidities and advanced age, the patient was deemed inappropriate for immediate surgical intervention. The patient was evaluated for possible cholecystostomy tube placement per interventional radiology. Placement of the tube was complicated secondary to recent anticoagulation use. Antibiotic therapy continued and the patient's condition gradually improved. The patient's condition is stable. She has not experienced any significant overnight events. Today, we feel that she is indeed appropriate for discharge home to follow-up with her primary care physician as indicated. The patient will be discharged home with prescriptions for ciprofloxacin 400 mg twice daily 7 days metronidazole 500 mg 3 times daily 7 days, and lactobacillus acidophilus 1 tablet by mouth twice daily. Diagnosis - Discharge Diagnosis (1) Abdominal pain Status: Acute (2) Congestive heart failure Status: Chronic (3) Chronic renal insufficiency Status: Chronic (4) Type 2 diabetes mellitus Status: Chronic Specialty Discharge - Follow Up or Referrals Follow up with: Darrin Philip MD [Physician] - (When the patient is to be discharged, have her see Dr. Freddy Philip back in about 4 to 6 weeks.) Discharge Plan - Discharge Medications No Action Omeprazole [Prilosec] 20 mg PO BEDTIME Allopurinol 100 mg PO QAM Insulin NPH/Regular 70/30 [HumuLIN 70/30] 42 unit SUBCUT AC BREAKFAST Medroxyprogesterone Acetate 5 mg PO QAM Potassium Chloride 20 meq PO BID Aspirin EC Tab 81 mg PO QAM Magnesium Chloride [Slow Mag] 128 mg PO BID Insulin NPH/Regular 70/30 [HumuLIN 70/30] 22 unit SUBCUT AC SUPPER Furosemide [Furosemide] 80 mg PO QPM Gabapentin [Gabapentin] 400 mg PO TID Atorvastatin [Lipitor] 40 mg PO BEDTIME Prasugrel [Effient] 10 mg PO QAM Sertraline [Zoloft] 50 mg PO BEDTIME Carvedilol [Carvedilol] 12.5 mg PO BID Furosemide [Furosemide] 160 mg PO QAM - Follow Up or Referral Follow Up: Darrin Philip MD [Physician] - (When the patient is to be discharged, have her see Dr. Freddy Philip back in about 4 to 6 weeks.) - Forms/Instructions Exam - Constitutional Vitals: Period Temp Pulse Resp BP Sys/Escobar Pulse Ox Last 24 Hr 97.9 F-98.2 F 63-81 18-20 101-190/57-95 90-96 Discharge Results Procedures and tests throughout hospitalization: Pending Orders 01/26/17 12:53 Blood Culture Stat Labs on day of discharge: Labs from last 24 hours 01/30/17 01/30/17 01/30/17 07:26 06:23 06:23 WBC 7.4 RBC 3.72 L Hgb 10.2 L Hct 30.3 L MCV 81.5 L MCH 27 MCHC 33.7 RDW 16.0 Plt Count 198 MPV 10.9 Neut % (Auto) 60.5 Lymph % (Auto) 22.0 [place] % (Auto) 10.6 Eos % (Auto) 6.3 Baso % (Auto) 0.3 Neut # (Auto) 4.5 Lymph # (Auto) 1.6 [place] # (Auto) 0.8 Eos # (Auto) 0.5 Baso # (Auto) 0.0 Immature Gran % 0.3 Nucleated RBC % 0.0 Immature Gran # 0.02 Nucleated RBCs # 0.00 Immature Plt Fraction 0.0 Sodium 138 Potassium 3.5 Chloride 100 Carbon Dioxide 32 Anion Gap 9.5 BUN 18 Creatinine 1.80 H GFR Calculation 33 BUN/Creatinine Ratio 10.00 Glucose 227 H POC Glucose 233 H Calculated Osmolality 283.7 Calcium 8.3 L Phosphorus 2.8 Magnesium 1.8 Total Bilirubin 0.50 AST 61 H ALT 51 Alkaline Phosphatase 173 H B-Natriuretic Peptide Total Protein 6.2 L Albumin 3.0 L Globulin 3.2 Albumin/Globulin Ratio 0.9 L 01/29/17 01/29/17 01/29/17 23:34 20:00 15:49 WBC RBC Hgb Hct MCV MCH MCHC RDW Plt Count MPV Neut % (Auto) Lymph % (Auto) [place] % (Auto) Eos % (Auto) Baso % (Auto) Neut # (Auto) Lymph # (Auto) [place] # (Auto) Eos # (Auto) Baso # (Auto) Immature Gran % Nucleated RBC % Immature Gran # Nucleated RBCs # Immature Plt Fraction Sodium Potassium Chloride Carbon Dioxide Anion Gap BUN Creatinine GFR Calculation BUN/Creatinine Ratio Glucose POC Glucose 233 H 218 H Calculated Osmolality Calcium Phosphorus Magnesium Total Bilirubin AST ALT Alkaline Phosphatase B-Natriuretic Peptide 125 H Total Protein Albumin Globulin Albumin/Globulin Ratio 01/29/17 11:07 WBC RBC Hgb Hct MCV MCH MCHC RDW Plt Count MPV Neut % (Auto) Lymph % (Auto) [place] % (Auto) Eos % (Auto) Baso % (Auto) Neut # (Auto) Lymph # (Auto) [place] # (Auto) Eos # (Auto) Baso # (Auto) Immature Gran % Nucleated RBC % Immature Gran # Nucleated RBCs # Immature Plt Fraction Sodium Potassium Chloride Carbon Dioxide Anion Gap BUN Creatinine GFR Calculation BUN/Creatinine Ratio Glucose POC Glucose 288 H Calculated Osmolality Calcium Phosphorus Magnesium Total Bilirubin AST ALT Alkaline Phosphatase B-Natriuretic Peptide Total Protein Albumin Globulin Albumin/Globulin Ratio Preliminary micro results at discharge 01/26/17 12:53 Blood Culture - Preliminary Blood No growth at 3 days 01/26/17 12:53 Blood Culture - Preliminary Blood No growth at 3 days DS: Provider Date of admission: 01/26/17 10:41 Primary care physician: . No PCP Attending physician on admission: Cheyenne Hardin MD Consults: 01/26/17 11:52 Consult to Physician [CONS] Routine Comment: Consulting Provider: Ralph Mir III. When should Consulting Provider be notified: Now Person Notified: MD Hall Date Notified: 01/26/17 Time Notified: 13:59 Consult to Physician [CONS] Routine Comment: Consulting Provider: Jesenia Gan When should Consulting Provider be notified: Now Person Notified: NAOMY Date Notified: 01/26/17 Time Notified: 13:58 01/28/17 11:30 Consult to Occupational Therapy [CONS] Routine Reason for Occupational Therapy: Weakness Start Therapy: Today Consult Comment: Pt is quite deconditioned Discharging clinician: Alessia Sweeney CNP This is a very pleasant 87-year-old female that presented to the ED at [facility] on all morning of January 26, 2017 as a transfer from the [facility] in [facility] for the further evaluation of weakness. The patient has a very complex medical history significant for coronary artery disease, hypertension, myocardial infarction, depression, gouty arthritis, chronic urinary tract infections, chronic renal insufficiency, hemorrhoids, asthma, pneumonia, and chronic neck and back pain. The patient has a surgical history significant for cardiac catheterization with stent placement 5, appendectomy, hysterectomy, and colonoscopy. The patient reported the onset of symptoms on last night. The family was present at bedside reported that the patient is a poor historian at times and has agreed to serve as historian. The family reported that they noticed that the patient was "shaking, cold, and did not feel well". In addition, they reported a gradual onset of weakness, shortness of breath, and decreased appetite. They reported that the patient started to experience abdominal pain with vomiting 1 on last night. They reported that the patient's symptoms became more severe as the night progressed prompting them to present to the ED at [facility] for further evaluation. The patient was assessed at the time of ED presentation at [facility]. Upon review of the patient's medical record, labs were obtained prior to transfer which were significant for white blood cell count 17.2, hemoglobin 10.2, hematocrit 31.8, sodium 136, creatinine 2.20, BUN 25, glucose 231, alkaline phosphatase 241, ALT 145, AST 192, creatinine kinase 450, CK-MB 7.0, PT 15.1, INR 1.2, amylase 30, lipase 2, proBNP 1533, and lactic acid 1.6. Urinalysis was essentially unremarkable. CT head without IV contrast significant for chronic changes with no definite evidence of acute intracranial abnormality and the presence of mild chronic sinus disease was noted. Abdominal x-ray was significant for cardiomegaly, osteoarthritis however, no acute abnormality was noted. The patient was subsequently admitted to [facility] for continuation of care. Empiric antibiotic coverage bowel rest, pain management and fluid rehydration was initiated at the time of admission. A general surgery and cardiology consultation was requested to assist during the clinical encounter. The patient was evaluated by cardiology and recommendations were given. The patient 's anticoagulation agent was placed on hold pending possible surgical intervention. The patient was evaluated by general surgery. Due to the patient 's extensive comorbidities and advanced age, the patient was deemed inappropriate for immediate surgical intervention. The patient was evaluated for possible cholecystostomy tube placement per interventional radiology. Placement of the tube was complicated secondary to recent anticoagulation use. Antibiotic therapy continued and the patient's condition gradually improved. The patient's condition is stable. She has not experienced any significant overnight events. Today, we feel that she is indeed appropriate for discharge home to follow-up with her primary care physician as indicated. The patient will be discharged home with prescriptions for ciprofloxacin 400 mg twice daily 7 days metronidazole 500 mg 3 times daily 7 days, and lactobacillus acidophilus 1 tablet by mouth twice daily x7 days/ Diagnosis - Discharge Diagnosis (1) Abdominal pain Status: Acute (2) Congestive heart failure Status: Chronic (3) Chronic renal insufficiency Status: Chronic (4) Type 2 diabetes mellitus Status: Chronic Specialty Discharge - Follow Up or Referrals Follow up with: Darrin Philip MD [Physician] - (When the patient is to be discharged, have her see Dr. Freddy Philip back in about 4 to 6 weeks.) Discharge Plan - Discharge Medications No Action Omeprazole [Prilosec] 20 mg PO BEDTIME Allopurinol 100 mg PO QAM Insulin NPH/Regular 70/30 [HumuLIN 70/30] 42 unit SUBCUT AC BREAKFAST Medroxyprogesterone Acetate 5 mg PO QAM Potassium Chloride 20 meq PO BID Aspirin EC Tab 81 mg PO QAM Magnesium Chloride [Slow Mag] 128 mg PO BID Insulin NPH/Regular 70/30 [HumuLIN 70/30] 22 unit SUBCUT AC SUPPER Furosemide [Furosemide] 80 mg PO QPM Gabapentin [Gabapentin] 400 mg PO TID Atorvastatin [Lipitor] 40 mg PO BEDTIME Prasugrel [Effient] 10 mg PO QAM Sertraline [Zoloft] 50 mg PO BEDTIME Carvedilol [Carvedilol] 12.5 mg PO BID Furosemide [Furosemide] 160 mg PO QAM - Follow Up or Referral Follow Up: Darrin Philip MD [Physician] - (When the patient is to be discharged, have her see Dr. Freddy Philip back in about 4 to 6 weeks.) - Forms/Instructions Exam - Constitutional Vitals: Period Temp Pulse Resp BP Sys/Escobar Pulse Ox Last 24 Hr 97.9 F-98.2 F 63-81 18-20 101-190/57-95 90-96 Discharge Results Procedures and tests throughout hospitalization: Pending Orders 01/26/17 12:53 Blood Culture Stat Labs on day of discharge: Labs from last 24 hours 01/30/17 01/30/17 01/30/17 07:26 06:23 06:23 WBC 7.4 RBC 3.72 L Hgb 10.2 L Hct 30.3 L MCV 81.5 L MCH 27 MCHC 33.7 RDW 16.0 Plt Count 198 MPV 10.9 Neut % (Auto) 60.5 Lymph % (Auto) 22.0 [place] % (Auto) 10.6 Eos % (Auto) 6.3 Baso % (Auto) 0.3 Neut # (Auto) 4.5 Lymph # (Auto) 1.6 [place] # (Auto) 0.8 Eos # (Auto) 0.5 Baso # (Auto) 0.0 Immature Gran % 0.3 Nucleated RBC % 0.0 Immature Gran # 0.02 Nucleated RBCs # 0.00 Immature Plt Fraction 0.0 Sodium 138 Potassium 3.5 Chloride 100 Carbon Dioxide 32 Anion Gap 9.5 BUN 18 Creatinine 1.80 H GFR Calculation 33 BUN/Creatinine Ratio 10.00 Glucose 227 H POC Glucose 233 H Calculated Osmolality 283.7 Calcium 8.3 L Phosphorus 2.8 Magnesium 1.8 Total Bilirubin 0.50 AST 61 H ALT 51 Alkaline Phosphatase 173 H B-Natriuretic Peptide Total Protein 6.2 L Albumin 3.0 L Globulin 3.2 Albumin/Globulin Ratio 0.9 L 01/29/17 01/29/17 01/29/17 23:34 20:00 15:49 WBC RBC Hgb Hct MCV MCH MCHC RDW Plt Count MPV Neut % (Auto) Lymph % (Auto) [place] % (Auto) Eos % (Auto) Baso % (Auto) Neut # (Auto) Lymph # (Auto) [place] # (Auto) Eos # (Auto) Baso # (Auto) Immature Gran % Nucleated RBC % Immature Gran # Nucleated RBCs # Immature Plt Fraction Sodium Potassium Chloride Carbon Dioxide Anion Gap BUN Creatinine GFR Calculation BUN/Creatinine Ratio Glucose POC Glucose 233 H 218 H Calculated Osmolality Calcium Phosphorus Magnesium Total Bilirubin AST ALT Alkaline Phosphatase B-Natriuretic Peptide 125 H Total Protein Albumin Globulin Albumin/Globulin Ratio 01/29/17 11:07 WBC RBC Hgb Hct MCV MCH MCHC RDW Plt Count MPV Neut % (Auto) Lymph % (Auto) [place] % (Auto) Eos % (Auto) Baso % (Auto) Neut # (Auto) Lymph # (Auto) [place] # (Auto) Eos # (Auto) Baso # (Auto) Immature Gran % Nucleated RBC % Immature Gran # Nucleated RBCs # Immature Plt Fraction Sodium Potassium Chloride Carbon Dioxide Anion Gap BUN Creatinine GFR Calculation BUN/Creatinine Ratio Glucose POC Glucose 288 H Calculated Osmolality Calcium Phosphorus Magnesium Total Bilirubin AST ALT Alkaline Phosphatase B-Natriuretic Peptide Total Protein Albumin Globulin Albumin/Globulin Ratio Preliminary micro results at discharge 01/26/17 12:53 Blood Culture - Preliminary Blood No growth at 3 days 01/26/17 12:53 Blood Culture - Preliminary Blood No growth at 3 days DS: Provider Date of admission: 01/26/17 10:41 Primary care physician: . No PCP Attending physician on admission: Cheyenne Hardin MD Consults: 01/26/17 11:52 Consult to Physician [CONS] Routine Comment: Consulting Provider: Ralph Mir III. When should Consulting Provider be notified: Now Person Notified: Aware Date Notified: 01/26/17 Time Notified: 13:59 Consult to Physician [CONS] Routine Comment: Consulting Provider: Jesenia Gan When should Consulting Provider be notified: Now Person Notified: CIS Date Notified: 01/26/17 Time Notified: 13:58 01/28/17 11:30 Consult to Occupational Therapy [CONS] Routine Reason for Occupational Therapy: Weakness Start Therapy: Today Consult Comment: Pt is quite deconditioned Discharging clinician: Alessia Sweeney, GRAIN OILSEED OR PASTURE GROWER
[2017-01-30] MEDS ORDERED: LACTOBACILLUS ACIDOPHILUS/BULGARICUS CHEW TABLET PO SCH (10:30)
[2017-01-30 12:14] VITALS: BP 117/58
[2017-01-30] MEDS ORDERED: metroNIDAZOLE 500 MG TABLET PO SCH (15:00)
--- NOTE | 2017-01-30 16:50 | Cardiology Progress Note ---
Assessment and Plan (1) CAD (coronary artery disease) Status: Chronic Assessment and plan: Initial assessment and plan January 26, 2017: The patient has gallstones, may be causing some symptoms The patient has known coronary stents, but stress test in showed no ischemia, 16 months ago. No no angina suggestive at this time From my standpoint, may proceed with cholecystectomy when you deem best. I would estimate her cardiac risk of the noncardiac surgery would be 2-4% chance of ID arrhythmia or heart failure the main risk being related to her age- -. She had an echo done in 7 showed ejection fraction of 60%. We will not repeat at this time. I will follow along with you Assessment and plan January 27, 2017: No chest pain or shortness breath The patient is being evaluated for a cholecystotomy Holding the Effient I will continue to watch for any signs or symptoms of ischemia. So far, none are seen. Assessment and plan January 28, 2017: No chest pain or shortness of breath She is off the Effient for now We will ensure that she is at least on aspirin 81 mg daily indefinitely I feel sure the percutaneous drainage could be done of the gallbladder on low- dose aspirin today. If it appears we are not to do the drainage, I would recommend restarting the Effient 01/29/17: No angina No overt heart failure No gallbladder symptoms We are allowing her to eat what she wants and challenges the gallbladder It appears antibiotics have reversed the cholecystitis and she may not need surgery or a percutaneous cholecystostomy After she is discharged I will have her see Dr. Freddy Philip in 4 weeks 01/30/17: Assessment/plan/recommendation: No overt gallbladder symptoms If we are not to do the percutaneous cholecystostomy, I would recommend restarting the Effient at the home dose Continue the low-dose aspirin for now She will see Dr. Freddy Philip in about 4 weeks Thank you for allowing me to participate in this patient's care Qualifiers: Coronary Disease-Associated Artery/Lesion type: [place] artery [place] vs. transplanted heart: [place] heart Associated angina: without angina Qualified Code(s): I25.10 - Atherosclerotic heart disease of [place] coronary artery without angina pectoris (2) Advanced age Status: Chronic (3) Generalized weakness Status: Acute (4) Type 2 diabetes mellitus Status: Chronic (5) Chronic kidney disease Status: Chronic (6) Congestive heart failure Status: Chronic Cardiology - PN: Subj Interval history: No chest pain, shortness of breath, or right upper quadrant pain. Exam (Progress Note) - Constitutional Vitals: Period Temp Pulse Resp BP Sys/[place]obar Pulse Ox Last 24 Hr 97.9 F-98.3 F 64-81 18-20 101-190/57-95 90-99 Exam: General: Present: Appears Well, No Apparent Distress HEENT: Present: PERRL, Mucus Membranes Moist Neck: Present: Supple Neck, Midline Trachea Cardiac: Present: Reg Rate and Rhythm. Absent: Tachycardia, Bradycardia Lungs: Present: Normal Breath Sounds, No Wheeze, Rales, Rhonchi Neuro: Absent: Resting Tremor, Essential Tremor Abdomen: Present: Soft, Active Bowel Sounds. Absent: Distended Skin: Absent: Rash, Suspicious Lesions Extremities: Present: Normal Upper Extr. Pulses, Edema ([place] edema to bilateral lower extremities). Absent: Normal Lower Extr. Pulses (Weak pulses) Result/EKG - Labs CBC & BMP: 01/30/17 06:23 01/30/17 06:23 Lab Results: I have reviewed the past 24 hour labs Labs: Laboratory Results - last 24 hr 01/29/17 01/29/17 01/30/17 20:00 23:34 06:23 WBC 7.4 RBC 3.72 L Hgb 10.2 L Hct 30.3 L MCV 81.5 L MCH 27 MCHC 33.7 RDW 16.0 Plt Count 198 MPV 10.9 Neut % (Auto) 60.5 Lymph % (Auto) 22.0 [place] % (Auto) 10.6 Eos % (Auto) 6.3 Baso % (Auto) 0.3 Neut # (Auto) 4.5 Lymph # (Auto) 1.6 [place] # (Auto) 0.8 Eos # (Auto) 0.5 Baso # (Auto) 0.0 Immature Gran % 0.3 Nucleated RBC % 0.0 Immature Gran # 0.02 Nucleated RBCs # 0.00 Immature Plt Fraction 0.0 Sodium Potassium Chloride Carbon Dioxide Anion Gap BUN Creatinine GFR Calculation BUN/Creatinine Ratio Glucose POC Glucose 233 H Calculated Osmolality Calcium Phosphorus Magnesium Total Bilirubin AST ALT Alkaline Phosphatase B-Natriuretic Peptide 125 H Total Protein Albumin Globulin Albumin/Globulin Ratio 09/10/17 09/10/17 09/10/17 06:23 07:26 11:42 WBC RBC Hgb Hct MCV MCH MCHC RDW Plt Count MPV Neut % (Auto) Lymph % (Auto) [place] % (Auto) Eos % (Auto) Baso % (Auto) Neut # (Auto) Lymph # (Auto) [place] # (Auto) Eos # (Auto) Baso # (Auto) Immature Gran % Nucleated RBC % Immature Gran # Nucleated RBCs # Immature Plt Fraction Sodium 138 Potassium 3.5 Chloride 100 Carbon Dioxide 32 Anion Gap 9.5 BUN 18 Creatinine 1.80 H GFR Calculation 33 BUN/Creatinine Ratio 10.00 Glucose 227 H POC Glucose 233 H 233 H Calculated Osmolality 283.7 Calcium 8.3 L Phosphorus 2.8 Magnesium 1.8 Total Bilirubin 0.50 AST 61 H ALT 51 Alkaline Phosphatase 173 H B-Natriuretic Peptide Total Protein 6.2 L Albumin 3.0 L Globulin 3.2 Albumin/Globulin Ratio 0.9 L - EKG EKG results: interpreted by me Quality Measures - VTE Contraindication to Pharmacological VTE Prophylaxis: Already on Theraputic Agent , No Prophylaxis Needed Specialty Discharge - Follow Up or Referrals Follow up with: Darrin Philip MD [Physician] - (When the patient is to be discharged, have her see Dr. Freddy Philip back in about 4 to 6 weeks.)
[2017-01-30] MEDS ORDERED: CIPROFLOXACIN 500 MG TABLET PO SCH (21:00)
[2017-02-01] MEDS ORDERED: PRASUGREL 10 MG TABLET PO SCH (09:00)
== END 2017-01-30 13:05 | disposition home health service (06) | DRG 445 ==
LOC: EDBD → EDUNIT# → N.ED 09:56 → SUATTDRO 10:41 → N.EDINP 10:41 → N.5E 12:08
PROVIDERS: ADMIT Internal Medicine; ATTEND Hospitalist